=== PATIENT | male | born 1960 | race Caucasian/White ===

== ENCOUNTER 2023-07-19 10:44 | Emergency (ER) | payer OTHER, SELFPAY ==
[2023-07-19] VITALS (11 sets, daily range): BP systolic 113–178; BP diastolic 72–99; PULSE 59–83; RESP 18; TEMP 37.1; O2SAT 96–100; BMI 25.7
--- NOTE | 2023-07-19 11:08 | ECG_ITS ---
[facility] Test Date: 2023-07-19 Pat Name: Damion Segura Department: Room: Gender: Male Java [id number] Lead: : 1960 Requested By: William Mortensen Order Number: [id number] Ruben MD: Alejandro Watson M.D. Measurements Intervals [place] Rate: 62 P: 61 IN: 119 QRS: 17 QRSD: 87 T: 53 QT: 395 QTc: 402 Interpretive Statements SINUS RHYTHM WITH SHORT IN INTERVAL No previous ECG available for comparison Electronically Signed On 07-19-2023 14:10:16 CDT by Alejandro Watson M.D. [id number]
--- NOTE | 2023-07-19 11:09 | PC.PHAR ---
pt states takes no rx medications states only been taking the prn otc meds entered
--- NOTE | 2023-07-19 11:11 | W.ED.ABDPA2 ---
HPI - Abdominal Pain General: Chief Complaint: Abdominal Pain Stated Complaint: abd pain Time Seen by Provider: 07/19/23 10:49 Source: patient Mode of arrival: ambulatory History of Present Illness: 62-year-old male presents emergency room complaining of abdominal discomfort and what he describes as fullness. He states the last several months he has had difficulty with bowel movements. In the last 9 days he states he has been bed ridden he cannot eat or drink much because of abdominal discomfort. He has been using laxatives regularly last several months for stimulation of bowel movements. He feels like he has hemorrhoids at times has a prolapsed. He has tried some [id number] hemorrhoid cream with no relief he has not had any rectal bleeding. He did have a colonoscopy about 2 years ago that he reports he was told was normal. MD elicited complaint: abdominal pain Onset (ago): day(s) (9) Pain Consistency: intermittent Location: None Severity: mild Quality: cramping Radiation: none Exacerbating factors: nothing Relieving factors: nothing Associated Symptoms: Reports change in bowel habits; Denies anorexia, belching, bloating, change in stool character, chills, coffee ground emesis, constipation, GI cramping, diarrhea, dyspepsia, dysuria, fever(s), heartburn, hematochezia, hematuria, hematemesis, fecal incontinence, loose stools, melena, nausea, poor appetite, syncope and vomiting Review of Systems Const: Reports: fatigue and malaise; Denies: fever(s) or chills ENMT: Denies: throat pain, ear or mastoid pain, nasal discharge or nasal congestion Card: Denies: syncope Resp: Denies: dyspnea, productive cough or non-productive cough GI: Reports: abdominal pain, change in bowel habits, pain on defecation and rectal pain; Denies: nausea, vomiting, hematemesis, coffee ground emesis, heartburn, diarrhea, constipation, bloating, GI cramping, belching, fecal incontinence, change in stool character, hematochezia or melena : Denies: dysuria, urinary frequency, urinary urgency or hematuria Skin/Breast: Denies: rash or pruritus Physical Exam Const: GENERAL APPEARANCE: cooperative and comfortable ORIENTATION/CONSCIOUSNESS: Yes awake, Yes oriented to person, Yes oriented to place and Yes oriented to time HENMT: COMMON NORMALS: normocephalic, atraumatic and hearing grossly normal bilaterally HEAD & SCALP: normocephalic and atraumatic Resp: COMMON NORMALS: normal respiratory effort, No retractions, No use of accessory muscles and clear to auscultation bilaterally AUSCULTATION: clear to auscultation bilaterally Cardio: COMMON NORMALS: regular rate, regular rhythm and No murmurs present (Cardio) RATE: regular rate RHYTHM: regular rhythm GI: COMMON NORMALS: Soft to palpation and No hepatosplenomegaly present AUSCULTATION: Yes normoactive bowel sounds PALPATION: Yes Soft to palpation, No Tenderness to palpation present (GI), No Guarding due to palpation present (GI) and Yes No hepatosplenomegaly present OTHER: Nonthrombosed hemorrhoid at the 6 o'clock position. No rectal bleeding no fissures. : COMMON NORMALS: Yes no CVA tenderness BLADDER/KIDNEY EXAM: Yes no CVA tenderness Back/Pelvis: COMMON NORMALS: no CVA tenderness Extremity: COMMON NORMALS: normal to inspection, capillary refill normal, no clubbing, cyanosis or edema, no calf tenderness and no pedal edema Neuro: SENSORIUM/ORIENTATION: Yes oriented to person, Yes oriented to place and Yes oriented to time Skin: COMMON NORMALS: no rashes or lesions noted GENERAL SKIN EXAM: no rashes or lesions noted Course Vital Signs: Vital signs: Vital Signs Temperature 98.8 F 07/19/23 13:00 Pulse Rate 83 07/19/23 15:17 Respiratory Rate 18 07/19/23 13:22 Blood Pressure 126/74 07/19/23 15:17 Pulse Oximetry 96 07/19/23 15:17 Oxygen Delivery Me thod Room Air 07/19/23 15:00 MDM - Abdominal Pain Medical Decision Making Labs and imaging reviewed. Suspect subacute diverticulitis. Started on Cipro and Flagyl. Follow-up with primary care within the week at some point in the future will need to be reevaluated with consideration for repeat endoscopy. If symptoms worsen or change recheck Medical Records I reviewed the patient's medical records. Lab Data I reviewed the patient's lab results. 07/19/23 11:20 07/19/23 11:20 Labs/Radiology: Laboratory Results WBC 9.10 10^3/uL (3.29-11.43) 07/19/23 11:20 RBC 5.01 10^6/uL (3.85-5.65) 07/19/23 11:20 Hgb 16.10 g/dL (11.27-16.99) 07/19/23 11:20 Hct 49.4 % (37-53) 07/19/23 11:20 MCV 98.6 fl (82-101) 07/19/23 11:20 MCH 32.1 pg (27-33) 07/19/23 11:20 MCHC 32.6 g/dL (30-55) 07/19/23 11:20 RDW 12.3 % (12.1-15.1) 07/19/23 11:20 Plt Count 134 10^3/cmm (157-399) L 07/19/23 11:20 MPV 11.0 fL (7.4-10.4) H 07/19/23 11:20 Neut % (Auto) 69.5 % 07/19/23 11:20 Lymph % (Auto) 20.0 % 07/19/23 11:20 [place] % (Auto) 7.8 % 07/19/23 11:20 Eos % (Auto) 1.6 % 07/19/23 11:20 Baso % (Auto) 0.7 % 07/19/23 11:20 Neut # (Auto) 6.32 10^3/uL (1.8-7.7) 07/19/23 11:20 Lymph # (Auto) 1.8 10^3/uL (0.8-4.8) 07/19/23 11:20 [place] # (Auto) 0.7 10^3/uL (0.2-0.9) 07/19/23 11:20 Eos # (Auto) 0.2 10^3/uL (0.0-0.8) 07/19/23 11:20 Baso # (Auto) 0.1 10^3/uL (0.0-0.1) 07/19/23 11:20 Nucleated RBC % (auto) 0 % 07/19/23 11:20 Nucleated RBCs # 0.0 /100WBC 07/19/23 11:20 Sodium 140 mmol/L (136-145) 07/19/23 11:20 Potassium 4.0 mmol/L (3.5-5.1) 07/19/23 11:20 Chloride 101 mmol/L (98-107) 07/19/23 11:20 Carbon Dioxide 28 mmol/L (22-29) 07/19/23 11:20 Anion Gap 15.0 (5-19) 07/19/23 11:20 BUN 13 mg/dL (8-23) 07/19/23 11:20 Creatinine 0.9 mg/dL (0.7-1.2) 07/19/23 11:20 GFR Calculation 86.1 mL/min (90-130) L 07/19/23 11:20 Glucose 97 mg/dL (65-115) 07/19/23 11:20 Calculated Osmolality 290 mOsm/kg (285-295) 07/19/23 11:20 Calcium 9.0 mg/dL (8.5-10.5) 07/19/23 11:20 Total Bilirubin 0.8 mg/dL (0.15-1.2) 07/19/23 11:20 AST 12 U/L (0-40) 07/19/23 11:20 ALT 17 U/L (0-41) 07/19/23 11:20 Alkaline Phosphatase 89 U/L (40-130) 07/19/23 11:20 Total Protein 7.0 g/dL (6.6-8.7) 07/19/23 11:20 Albumin 4.8 g/dL (3.5-5.2) 07/19/23 11:20 Globulin 2.2 g/dL (1.3-4.6) 07/19/23 11:20 Lipase 32 U/L (13-60) 07/19/23 11:20 Urine Color Yellow (Yellow) 07/19/23 11:57 Urine Appearance Clear (CLEAR) 07/19/23 11:57 Urine pH 6 (5-7) 07/19/23 11:57 Ur Specific [place] 1.015 (1.005-1.030) 07/19/23 11:57 Urine Protein Neg (Negative) 07/19/23 11:57 Urine Glucose (UA) Norm (Normal) 07/19/23 11:57 Urine Ketones 1+ (Negative) H 07/19/23 11:57 Urine Blood Trace (Negative) H 07/19/23 11:57 Urine Nitrate Negative (Negative) 07/19/23 11:57 Urine Bilirubin 1+ (Negative) H 07/19/23 11:57 Urine Urobilinogen Norm mg/dL (Negative) 07/19/23 11:57 Ur Leukocyte Esterase Negative (Negative) 07/19/23 11:57 Urine RBC 0-4 /hpf (0-2) H 07/19/23 11:57 Urine WBC 0-4 /hpf (0-5) H 07/19/23 11:57 Ur Squamous Epith Cells 0-4 /hpf (0-5) H 07/19/23 11:57 Amorphous Sediment Not Reportable 07/19/23 11:57 Urine Bacteria None /hpf (NONE) 07/19/23 11:57 Urine Mucus 2+ /hpf 07/19/23 11:57 All radiology interpretation(s) finalized by discharge Discharge Plan Discharge Patient Disposition: Home Clinical Impression: Diverticulitis Condition: Stable Prescriptions: New Cipro 500 mg tablet 500 mg PO BID Qty: 20 0RF metronidazole 500 mg tablet 500 mg PO BID 10 Days Qty: 20 0RF promethazine 25 mg tablet 25 mg PO Q6H PRN (Reason: nausea and vomiting) Qty: 20 0RF hydrocodone-acetaminophen 5-325 mg tablet 1 tab PO Q6H PRN (Reason: pain) Qty: 15 0RF No Action Tylenol Ex Str Rapid Release 500 mg Tablet 1,000 mg PO Q6H PRN (Reason: Pain) Pepto-Bismol 262 mg/15 mL Suspension 524 mg PO QID PRN (Reason: Indigestion) Tums 200 mg calcium (500 mg) Tablet,Chewable 200 mg PO QID PRN (Reason: Indigestion) Dulcolax (bisacodyl) 5 mg Tablet,Delayed Release (Dr/Ec) 5 mg PO DAILY PRN (Reason: Constipation) Ex-Lax Maximum Strength 25 mg Tablet 25 mg PO BID PRN (Reason: Constipation) Discharge Orders: Discharge ED (Routine); Ordered 07/19/23 Ordered By: William Lundy Patient Instructions: Diverticulitis (ED), Opioid Safety, Pain Management Coding Level of Care Code ED New Home Sales Consultant for Kuldip Bar
[2023-07-19 11:31] LABS: Basophils # 0.1 10^3/uL (0.0-0.1); Basophils % 0.7 %; Eosinophils # 0.2 10^3/uL (0.0-0.8); Eosinophils % 1.6 %; Hematocrit 49.4 % (37-53); Lymphocytes # 1.8 10^3/uL (0.8-4.8); Mean Corpuscular HGB Conc 32.6 g/dL (30-55); Mean Corpuscular Hemoglobin 32.1 pg (27-33); Mean Corpuscular Volume 98.6 fl (82-101); Monocytes # 0.7 10^3/uL (0.2-0.9); Monocytes % 7.8 %; Neutrophils # 6.32 10^3/uL (1.8-7.7); Neutrophils % 69.5 %; Nucleated Red Blood Cells % 0 %; Platelet Count 134 10^3/cmm (157-399); Red Blood Count 5.01 10^6/uL (3.85-5.65); Red Cell Distribution Width 12.3 % (12.1-15.1)
[2023-07-19 11:44] LABS: Alanine Aminotransferase 17 U/L (0-41); Albumin Level 4.8 g/dL (3.5-5.2); Alkaline Phosphatase 89 U/L (40-130); Aspartate Amino Transferase 12 U/L (0-40); Blood Urea Nitrogen 13 mg/dL (8-23); Carbon Dioxide 28 mmol/L (22-29); Chloride 101 mmol/L (98-107); Globulin 2.2 g/dL (1.3-4.6); Glomerular Filtration Rate 86.1 mL/min (90-130); Glucose 97 mg/dL (65-115); Lipase 32 U/L (13-60); Osmolality Calculated 290 mOsm/kg (285-295); Sodium 140 mmol/L (136-145); Total Bilirubin 0.8 mg/dL (0.15-1.2)
--- NOTE | 2023-07-19 11:52 | CT_ITS ---
WS: [id number] CT ABDOMEN AND PELVIS NONCONTRAST HISTORY: Abdominal pain TECHNIQUE: Imaging performed through the abdomen and pelvis. Coronal and sagittal reformats are submi tted. All CT scans at [facility] use at least one of these dose optimization techniques: auto mated exposure control; mA and/or kV adjustment per patient size (includes targeted exams where dose is matched to clinical indication); or iterative reconstruction. DLP: 645.30 mGy.cm COMPARISON: None available. Lower thorax: Significant breathing motion artifact at the lung bases. Heart is normal size. Liver: Normal size liver. No mass or bile duct dilatation. Gallbladder: Prior cholecystectomy. Pancreas: Normal size and attenuation. Normal pancreatic duct. No pancreatitis or mass. Spleen: Normal. Adrenal glands: Normal. No mass. Right kidney: Mild perinephric stranding. No obstruction. Left kidney: Mild perinephric stranding. No obstruction. Aorta: Mild atherosclerosis abdominal aorta with no aneurysm. No free fluid, intraperitoneal air or significant lymphadenopathy. GI tract: Normally distended stomach. Numerous diverticula in the distal colon. No evidence for acute diverticulitis. The appendix is identified extending into the RIGHT inguinal hernia. Abdominal wall: Very small umbilical hernia containing fat only. Pelvis: No free fluid. Normal urinary bladder. Inguinal canals are patent and contain fat. Extending into the RIGHT inguinal hernia is a small portion of the cecum and the appendix. Osseous structures: Unremarkable. IMPRESSION: 1. Extensive chronic diverticular disease involving the distal colon. No evidence for an obstruction or acute diverticulitis. 2. RIGHT inguinal hernia. The inguinal hernia contains the appendix and a small amount of the cecum at the orifice. No appendicitis at this time. Recommend surgical evaluation. 3. Prior cholecystectomy. 4. No renal obstruction.
[2023-07-19 12:30] LABS: Add Urine Microscopic? YES; Bilirubin Urine 1+ (Negative); Blood Urine Trace (Negative); Glucose Urine UA Norm (Normal); Ketones Urine 1+ (Negative); Leukocyte Esterase Urine Negative (Negative); Nitrate Urine Negative (Negative); Protein Urine Neg (Negative); Specific Gravity, Urine 1.015 (1.005-1.030); Urine Appearance Clear (CLEAR); Urine Color Yellow (Yellow); Urobilinogen Urine Norm (Negative); pH Urine 6 (5-7)
[2023-07-19 12:38] LABS: Add Urine Culture? No; Mucus Urine 2+ /hpf; RBC Urine 0-4 /hpf (0-2); Squamous Epithelial Cell Urine 0-4 /hpf (0-5); WBC Urine 0-4 /hpf (0-5)
[2023-07-19] MEDS: promethazine 25 mg/mL SDV 1 mL IM (13:01)
[2023-07-19] MEDS: sodium chloride 0.9% 1,000 ML 999 ML IV (13:01)
[2023-07-19] MEDS: morphine 4 mg/mL SDV 1 mL IVP (13:02)
[2023-07-19] MEDS: morphine 4 mg/mL SDV 1 mL 2 MG IVP (13:22)
[2023-07-19] MEDS: ciprofloxacin 400 MG/200 ML PREMIX 200 MG IV (13:23)
[2023-07-19] MEDS: metroNIDAZOLE IV 500 MG/100 ML PREMIX 100 MG IV (13:26)
== END 2023-07-19 15:20 | disposition home or self-care (01) ==
PROVIDERS: Emergency Provider Family Medicine
DX: K57.92 Diverticulitis of intestine, part unspecified, without perforation or abscess without bleeding (principal)
CPT/HCPCS: 36415; 74176; 80053; 81001; 83690; 85025; 93005; 96365; 96366; 96367; 96372; 96375; 96376; 99285; J0744; J2270; J2550; J3490; J7030

== ENCOUNTER → 2023-08-27 10:54 | Outpatient (BNVA) | payer OTHER, SELFPAY | PROVIDERS: Referring Provider Family Medicine; Visit Provider Surgery | DX: K64.9 Unspecified hemorrhoids (principal) | CPT/HCPCS: 99203 ==

== ENCOUNTER 2023-12-26 08:32 | Emergency (ER) | payer OTHER, SELFPAY ==
[2023-12-26] VITALS (43 sets, daily range): BP systolic 138–173; BP diastolic 87–113; PULSE 65–98; RESP 20; TEMP 36.7; O2SAT 82–100
--- NOTE | 2023-12-26 08:36 | XR_ITS ---
WS: [id number] Portable AP upright chest, 12/26/2023 Clinical Data: dyspnea/cough Comparison: None Findings: No nodules, masses or effusions are seen. The heart is normal. The pulmonary vascularity is not increased. No pneumonia or pneumothorax is seen. Impression: Negative chest.
--- NOTE | 2023-12-26 08:38 | ECG_ITS ---
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 Measurements Intervals [place] Rate: 78 P: 51 MN: 108 QRS: 32 QRSD: 85 T: 46 QT: 358 QTc: 409 Interpretive Statements SINUS RHYTHM WITH SHORT [place] INTERVAL WITH OCCASIONAL SUPRAVENTRICULAR PREMATURE COMPLEXES POSSIBLE RIGHT VENTRICULAR CONDUCTION DELAY [RSR (QR) IN V1/V2] MODERATE ST DEPRESSION [0.05+ mV ST DEPRESSION] Compared to ECG 07/19/2023 11:24:20 ST (T wave) deviation now present Electronically Signed On 12-26-2023 10:54:47 ANALOG DESIGN ENGINEER by Irvin Jimenez M.D. [id number] f
--- NOTE | 2023-12-26 08:43 | ED_ITS ---
HPI - Abdominal Pain 2 General: Chief Complaint: Abdominal Pain Stated Complaint: abd pain, n/v, sob Time Seen by Provider: 12/26/23 08:35 Source: patient Mode of arrival: ambulatory History of Present Illness: 63-year-old male presents to the emergen cy room complaining of abdominal pain that began suddenly 2 days ago. He reports generalized abdominal pain no lower abdomen. He has had problems with hemorrhoids in the past he was seen a few months ago at that time he had a right inguinal hernia complaint contained some bowel but he still having bowel movements regularly. He had a follow-up with surgery who evaluated his hemorrhoids. He has not had any other problems until today. He had a colonoscopy few years ago that was otherwise unremarkable. He denies any hematuria dysuria urgency or frequency his last bowel movement was 2 days ago and is symptoms began. No hematochezia melena hematemesis or coffee- ground emesis. He has previously had a cholecystectomy. MD elicited complaint: abdominal pain Pertinent past history: none Onset (ago): minute(s) Location: None Severity: mild Quality: cramping Exacerbating factors: nothing Relieving factors: nothing Associated Symptoms: Reports nausea and vomiting; Denies anorexia, belching, bloating, change in bowel habits, change in stool character, chills, coffee ground emesis, constipation, GI cramping, diarrhea, dyspepsia, dysuria, excessive flatus, fever(s), heartburn, hematochezia, hematuria, hematemesis, fecal incontinence, loose stools, melena, poor appetite and syncope Review of Systems 2 Const: Denies: fever(s) or chills Card: Denies: syncope Resp: Reports: dyspnea; Denies: productive cough, non-productive cough or wheezing GI: Reports: abdominal pain, nausea and vomiting; Denies: hematemesis, coffee ground emesis, heartburn, diarrhea, constipation, bloating, GI cramping, belching, excessive flatus, fecal incontinence, change in bowel habits, change in stool character, hematochezia or melena : Denies: dysuria or hematuria Musc: Denies: neck pain or back pain Skin/Breast: Denies: rash PFSH ED 2 PFSH: Family History Mother Breast cancer Father Cancer Bone cancer Social History Smoking and tobacco/nicotine status: current every day tobacco/nicotine user Alcohol intake: never Physical Exam 2 Const: COMMON NORMALS: no acute distress GENERAL APPEARANCE: cooperative and comfortable ORIENTATION/CONSCIOUSNESS: Yes awake, Yes oriented to person, Yes oriented to place and Yes oriented to time HENMT: COMMON NORMALS: normocephalic, atraumatic and hearing grossly normal bilaterally HEAD & SCALP: normocephalic and atraumatic Resp: COMMON NORMALS: normal respiratory effort, No retractions, No use of accessory muscles and clear to auscultation bilaterally AUSCULTATION: clear to auscultation bilaterally Cardio: COMMON NORMALS: regular rate, regular rhythm and No murmurs present (Cardio) RATE: regular rate RHYTHM: regular rhythm GI: COMMON NORMALS: Soft to palpation and No hepatosplenomegaly present A USCULTATION: Yes normoactive bowel sounds PALPATION: Yes Soft to palpation, No Tenderness to palpation present (GI), No Guarding due to palpation present (GI) and Yes No hepatosplenomegaly present Extremity: COMMON NORMALS: normal to inspection, capillary refill normal, no clubbing, cyanosis or edema, no calf tenderness and no pedal edema Neuro: SENSORIUM/ORIENTATION: Yes oriented to person, Yes oriented to place and Yes oriented to time Skin: COMMON NORMALS: no rashes or lesions noted GENERAL SKIN EXAM: no rashes or lesions noted Course 2 Vital Signs: Vital signs: Vital Signs Temperature 98.1 F 12/26/23 08:34 Pulse Rate 65 12/26/23 11:46 Respiratory Rate 20 H 12/26/23 08:34 Blood Pressure 167/94 12/26/23 11:45 Pulse Oximetry 97 12/26/23 11:46 Oxygen Delivery Me thod Nasal Cannula 12/26/23 11:10 Oxygen Flow Rate 2 12/26/23 11:10 MDM - Abdominal Pain Medical Decision Making Patient has similar presentation as he did last fall. He had a portion of the appendix and a right inguinal hernia was asymptomatic of that last time and is actually very asymptomatic of it today even with palpation across the inguinal canal I cannot really elicit any discomfort. Does not even anything reducible at this point. Discussed with Dr. Pollack he recommends treating empirically for diverticulitis and have him follow-up with Dr. Barros in the office. He has seen Dr. Barros in the past. Clear liquid diet for next 24 to 48 hours then advance as tolerated. Return if has further problems. Medical Records I reviewed the patient's medical records. Lab Data I reviewed the patient's lab results. 12/26/23 09:10 12/26/23 09:10 Labs/Radiology: Laboratory Results WBC 9.77 10^3/uL (3.29-11.43) 12/26/23 09:10 RBC 5.53 10^6/uL (3.85-5.65) 12/26/23 09:10 Hgb 17.60 g/dL (11.27-16.99) H 12/26/23 09:10 Hct 51.8 % (37-53) 12/26/23 09:10 MCV 93.7 fl (82-101) 12/26/23 09:10 MCH 31.8 pg (27-33) 12/26/23 09:10 MCHC 34.0 g/dL (30-55) 12/26/23 09:10 RDW 12.2 % (12.1-15.1) 12/26/23 09:10 Plt Count 166 10^3/cmm (157-399) 12/26/23 09:10 MPV 10.4 fL (7.4-10.4) 12/26/23 09:10 Neut % (Auto) 84.2 % 12/26/23 09:10 Lymph % (Auto) 9.7 % 12/26/23 09:10 [place] % (Auto) 5.2 % 12/26/23 09:10 Eos % (Auto) 0.1 % 12/26/23 09:10 Baso % (Auto) 0.4 % 12/26/23 09:10 Neut # (Auto) 8.22 10^3/uL (1.8-7.7) H 12/26/23 09:10 Lymph # (Auto) 1.0 10^3/uL (0.8-4.8) 12/26/23 09:10 [place] # (Auto) 0.5 10^3/uL (0.2-0.9) 12/26/23 09:10 Eos # (Auto) 0.0 10^3/uL (0.0-0.8) 12/26/23 09:10 Baso # (Auto) 0.0 10^3/uL (0.0-0.1) 12/26/23 09:10 Nucleated RBC % (auto) 0 % 12/26/23 09:10 Nucleated RBCs # 0.0 /100WBC 12/26/23 09:10 Sodium 141 mmol/L (136-145) 12/26/23 09:10 Potassium 4.1 mmol/L (3.5-5.1) 12/26/23 09:10 Chloride 101 mmol/L (98-107) 12/26/23 09:10 Carbon Dioxide 27 mmol/L (22-29) 12/26/23 09:10 Anion Gap 17.1 (5-19) 12/26/23 09:10 BUN 16 mg/dL (8-23) 12/26/23 09:10 Creatinine 0.9 mg/dL (0.7-1.2) 12/26/23 09:10 GFR Calculation 85.8 mL/min (90-130) L 12/26/23 09:10 Glucose 117 mg/dL (65-115) H 12/26/23 09:10 Calculated Osmolality 294 mOsm/kg (285-295) 12/26/23 09:10 Calcium 9.0 mg/dL (8.5-10.5) 12/26/23 09:10 Total Bilirubin 1.1 mg/dL (0.15-1.2) 12/26/23 09:10 AST 16 U/L (0-40) 12/26/23 09:10 ALT 17 U/L (0-41) 12/26/23 09:10 Alkaline Phosphatase 86 U/L (40-130) 12/26/23 09:10 Troponin T Baseline < 6 ng/L (0-15) 12/26/23 09:10 Troponin T 120 Minute 8.39 ng/L (0-15) 12/26/23 11:10 Delta Troponin T 2.76016 ABS# (0-10) 12/26/23 11:10 Total Protein 7.4 g/dL (6.6-8.7) 12/26/23 09:10 Albumin 4.4 g/dL (3.5-5.2) 12/26/23 09:10 Globulin 3.0 g/dL (1.3-4.6) 12/26/23 09:10 Lipase 39 U/L (13-60) 12/26/23 09:10 Urine Color Yellow (Yellow) 12/26/23 10:56 Urine Appearance Hazy (CLEAR) A 12/26/23 10:56 Urine pH 8 (5-7) H 12/26/23 10:56 Ur Specific [place] 1.010 (1.005-1.030) 12/26/23 10:56 Urine Protein Neg (Negative) 12/26/23 10:56 Urine Glucose (UA) Norm (Normal) 12/26/23 10:56 Urine Ketones 1+ (Negative) H 12/26/23 10:56 Urine Blood Neg (Negative) 12/26/23 10:56 Urine Nitrate Negative (Negative) 12/26/23 10:56 Urine Bilirubin Neg (Negative) 12/26/23 10:56 Prot Sulfosalicylic Acd Negative (Negative) 12/26/23 10:56 Urine Urobilinogen Norm mg/dL (Negative) 12/26/23 10:56 Ur Leukocyte Esterase Negative (Negative) 12/26/23 10:56 Urine RBC None /hpf (0-2) 12/26/23 10:56 Urine WBC 0-4 /hpf (0-5) H 12/26/23 10:56 Ur Squamous Epith Cells 0-4 /hpf (0-5) H 12/26/23 10:56 Ur Renal Epithelial Cell Rare /hpf 12/26/23 10:56 Amorphous Sediment 2+ /hpf 12/26/23 10:56 Urine Bacteria Trace /hpf (NONE) 12/26/23 10:56 Urine Mucus 3+ /hpf 12/26/23 10:56 All radiology interpretation(s) finalized by discharge Discharge Plan Discharge Patient Disposition: Home Clinical Impression: Diverticulitis, Hernia, inguinal, right Condition: Stable Prescriptions: New Augmentin 500-125 mg tablet 1 tab PO BID Qty: 20 0RF hydrocodone-acetaminophen 5-325 mg tablet 1 tab PO Q6H PRN (Reason: pain) Qty: 15 0RF ondansetron HCl 4 mg tablet 4 mg PO Q6H PRN (Reason: nausea and vomiting) Qty: 20 0RF No Action Stool Softener 100 mg Capsule 200 mg PO QPM Discharge Orders: Discharge ED (Routine); Ordered 12/26/23 Ordered By: William Lundy Referrals: Nikolas Pham MD [Referring] - Discharge Diet: Usual diet Discharge Activity: Increase activity as tolerated Patient Instructions: Opioid Safety, Pain Management Activity Restrictions/Additional Instructions: Thank you for choosing [facility] for your healthcare needs today. Please realize this is an emergency room and that we are providing you with a medical screening exam and this may not be complete and all inclusive of all the testing and or work up that you may need to determine your ailment or severity of your illness. It is very important that you follow up as instructed or that you return to the Emergency Department should you have concerns or if your condition changes or worsens in any way. You are seen today for abdominal pain. Your CT did not show any acute abnormalities very mild constipation on the right side of the colon. There is a inguinal hernia with a portion of the cecum and the appendix in the inguinal canal however on the physical exam you were asymptomatic of this. There is no sign of bowel obstruction. You do have extensive diverticuli. Suspect this may be the cause of your symptoms. Recommend a course of oral antibiotics for this. We will make a referral back to the general surgeon to review the inguinal hernia findings on the CT. These were present at your last visit and were generally asymptomatic at that time as well. Coding Level of Care Code ED Outdoor Power Equipment Mechanic for Kuldip Bar
--- NOTE | 2023-12-26 08:47 | PC.PHAR ---
Addendum entered by Karly Man 12/26/23 09:15: [facility]-only thing they had listed for the pt was nicotine 4mg gum 4mg q4h prn Original Note: pt states he takes no prescription medications-pt states only takes the stool softener 2 cap qpm-faxed [facility] to verify they dont send any meds
[2023-12-26 09:17] LABS: Basophils % 0.4 %; Eosinophils % 0.1 %; Hematocrit 51.8 % (37-53); Lymphocytes % 9.7 %; Mean Corpuscular Hemoglobin 31.8 pg (27-33); Mean Corpuscular Volume 93.7 fl (82-101); Mean Platelet Volume 10.4 fL (7.4-10.4); Monocytes # 0.5 10^3/uL (0.2-0.9); Monocytes % 5.2 %; Neutrophils # 8.22 10^3/uL (1.8-7.7); Neutrophils % 84.2 %; Nucleated Red Blood Cells % 0 %; Platelet Count 166 10^3/cmm (157-399); Red Blood Count 5.53 10^6/uL (3.85-5.65); Red Cell Distribution Width 12.2 % (12.1-15.1); White Blood Count 9.77 10^3/uL (3.29-11.43)
[2023-12-26] MEDS: sodium chloride 0.9% 1,000 ML 999 ML IV (09:18)
[2023-12-26] MEDS: ondansetron 2 mg/ML SDV 2 mL 4 MG IVP (09:19)
[2023-12-26] MEDS: morphine 4 mg/mL SDV 1 mL IVP (09:22)
[2023-12-26 09:35] LABS: Troponin(5th) Baseline < 6 ng/L (0-15)
[2023-12-26 09:36] LABS: Alanine Aminotransferase 17 U/L (0-41); Albumin Level 4.4 g/dL (3.5-5.2); Alkaline Phosphatase 86 U/L (40-130); Blood Urea Nitrogen 16 mg/dL (8-23); Carbon Dioxide 27 mmol/L (22-29); Chloride 101 mmol/L (98-107); Glomerular Filtration Rate 85.8 mL/min (90-130); Glucose 117 mg/dL (65-115); Lipase 39 U/L (13-60); Osmolality Calculated 294 mOsm/kg (285-295); Sodium 141 mmol/L (136-145); Total Bilirubin 1.1 mg/dL (0.15-1.2); Total Protein 7.4 g/dL (6.6-8.7)
[2023-12-26 09:37] LABS: Anion Gap 17.1 (5-19); Potassium 4.1 mmol/L (3.5-5.1)
[2023-12-26 09:38] LABS: Aspartate Amino Transferase 16 U/L (0-40)
--- NOTE | 2023-12-26 09:42 | CT_ITS ---
WS: [id number] CT ABDOMEN PELVIS TECHNIQUE: Noncontrast CT of the abdomen and pelvis with coronal and sagittal reformatted images. CLINICAL INFORMATION: Abdominal pain COMPARISON: 07/19/2023 DLP: 769.[address] scans at [facility] use at least one of these dose optimization techniques: automated e xposure control; mA and/or kV adjustment per patient size (includes targeted exams where dose is matc hed to clinical indication); or iterative reconstruction. FINDINGS: RIGHT inguinal hernia containing the appendix extending into the inguinal canal and scrotum distally. No evidence of acute appendicitis. Recommend surgical evaluation. Cecum at the superior margin of th e hernia. A few air-fluid levels in the cecum and RIGHT colon. No evidence of high-grade obstruction. Extensive sigmoid diverticulosis. No evidence of acute diverticulitis. Fat-containing LEFT inguinal hernia. Lung bases are well aerated. Noncontrast liver is normal. Prior cholecystectomy. Normal GE junction. Air-fluid level in the stomach. Normal noncontrast spleen. Fatty atrophy of the pancreas. Adrenal gla nds are normal. No hydronephrosis in either kidney. Normal caliber abdominal aorta. Mild aortic calcification. Urine distended bladder. Prostate measures 3.8 cm. Mild spondylitic changes lumbar spine. Disc osteophyte complex worse L4-5 with mild central canal urbano nosis. Advanced facet arthropathy lower lumbar spine. IMPRESSION: 1. RIGHT inguinal hernia containing nonobstructed appendix extending into the scrotum. Recommend jennifer gical consultation. This is similar to previous. Tip of the cecum at the superior margin of the RIGHT inguinal hernia without evidence of significant obstruction. 2. Extensive sigmoid diverticulosis. No evidence of acute diverticulitis. 3. Prior cholecystectomy. 4. No hydronephrosis in either kidney.
--- NOTE | 2023-12-26 10:54 | ECG_ITS ---
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 Measurements Intervals [place] Rate: 59 P: 44 WV: 120 QRS: 10 QRSD: 89 T: 30 QT: 421 QTc: 420 Interpretive Statements SINUS BRADYCARDIA POSSIBLE RIGHT VENTRICULAR CONDUCTION DELAY [RSR (QR) IN V1/V2] Compared to ECG 12/26/2023 08:38:47 Sinus rhythm no longer present Short WV interval no longer present ST (T wave) deviation no longer present Electronically Signed On 12-26-2023 11:01:08 FRONT DESK COORDINATOR by Irvin Jimenez M.D. [id number]
[2023-12-26] MEDS: ketorolac 30 mg/mL INJ IVP (11:08)
[2023-12-26 11:46] LABS: Urine Appearance Hazy (CLEAR); Urine Color Yellow (Yellow); pH Urine 8 (5-7)
[2023-12-26 11:47] LABS: Add Urine Microscopic? YES; Bilirubin Urine Neg (Negative); Blood Urine Neg (Negative); Glucose Urine UA Norm (Normal); Ketones Urine 1+ (Negative); Leukocyte Esterase Urine Negative (Negative); Nitrate Urine Negative (Negative); Protein Urine Neg (Negative); Sulfosalicylic Acid Urine Negative (Negative); Urobilinogen Urine Norm (Negative)
[2023-12-26 11:50] LABS: Add Urine Culture? No; Amorphous Sediment Urine 2+ /hpf; Bacteria Urine TRACE /hpf; Mucus Urine 3+ /hpf; Renal Epithelial Cells Urine RARE /hpf; Squamous Epithelial Cell Urine 0-4 /hpf (0-5); WBC Urine 0-4 /hpf (0-5)
[2023-12-26 11:58] LABS: Troponin 5 2HR 8.39 ng/L (0-15); Troponin 5 2HR Delta 2.39001 ABS# (0-10)
--- NOTE | 2023-12-26 17:51 | DCPLANNER ---
Message sent to Gen Surg- You are seen today for abdominal pain. Your CT did not show any acute abnormalities very mild constipation on the right side of the colon. There is a inguinal hernia with a portion of the cecum and the appendix in the inguinal canal
== END 2023-12-26 11:40 | disposition home or self-care (01) ==
PROVIDERS: Emergency Provider Family Medicine
DX: K57.92 Diverticulitis of intestine, part unspecified, without perforation or abscess without bleeding (principal); K40.90 Unilateral inguinal hernia, without obstruction or gangrene, not specified as recurrent; Z72.0 Tobacco use
CPT/HCPCS: 36415; 71045; 74176; 80053; 81001; 83690; 84484; 85025; 93005; 96361; 96374; 96375; 99285; J1885; J2270; J2405; J7030

== ENCOUNTER → 2024-01-08 09:13 | Outpatient (BNVA) | payer OTHER, SELFPAY | PROVIDERS: Referring Provider Family Medicine; Visit Provider Surgery | DX: R10.9 Unspecified abdominal pain (principal); K57.92 Diverticulitis of intestine, part unspecified, without perforation or abscess without bleeding; K40.90 Unilateral inguinal hernia, without obstruction or gangrene, not specified as recurrent | CPT/HCPCS: 36415; 83630; 83993; 86003; 86008; 99214 ==

== ENCOUNTER 2024-01-31 07:50 | Emergency (ER) | payer OTHER, SELFPAY ==
[2024-01-31 08:01] VITALS: BP 165/96; PULSE 82; TEMP 37.1; O2SAT 100; BMI 27.1
--- NOTE | 2024-01-31 08:07 | CT_ITS ---
WS: [id number] CT ABDOMEN AND PELVIS WITH CONTRAST HISTORY: abd pain, epigastric pain. TECHNIQUE: Imaging performed of the abdomen and pelvis with IV contrast. Single phase imaging of the abdomen. Coronal and sagittal reformats are submitted. All CT scans at [facility] use at dia st one of these dose optimization techniques: automated exposure control; mA and/or kV adjustment per patient size (includes targeted exams where dose is matched to clinical indication); or iterative re construction. IV CONTRAST: Omnipaque 350; 100 mL IV. Oral contrast: None DLP: 695.69 mGy.cm COMPARISON: 12/26/2023 Lower thorax: Lung bases are clear. Heart is normal size. No hiatal hernia. Liver/biliary system: Normal size with no intrahepatic dilatation. Gallbladder: Status post cholecystectomy. Pancreas: Normal size pancreas and pancreatic duct. No adjacent inflammation. Spleen: Normal size spleen. No mass or infarct. Adrenal glands: Normal. Right kidney: Tiny cortical cyst upper pole. Otherwise negative. Left kidney: Normal. Aorta: Mild atherosclerosis with no aneurysm. Lymphadenopathy: None. Free fluid: None. GI tract: No GI tract obstruction. The appendix is reidentified in the RIGHT inguinal hernia as on pr ior studies. Numerous diverticula beginning in the descending through the sigmoid colon. There is jennifer e moderate inflammation in the deep LEFT pelvis consistent with acute diverticulitis. There is no abs cess. Abdominal wall: Unremarkable abdominal wall. No hernia. Pelvis: No mass. Negative urinary bladder. Bilateral patent inguinal canals. Bones: Mild facet joint arthritis lower lumbar spine. Moderate degenerative changes at the hips. Slig htly greater narrowing LEFT hip joint with acetabular and osteophytic ridging. markable. IMPRESSION: 1. Acute, moderate distal sigmoid diverticulitis. No abscess or free fluid. No free air. 2. No appendicitis. Reidentified is the appendix in the RIGHT inguinal hernia which has been previou sly described. 3. No ascites or adenopathy. 4. Prior cholecystectomy.
--- NOTE | 2024-01-31 08:16 | ED_ITS ---
HPI - Abdominal Pain 2 General: Chief Complaint: Abdominal Pain Stated Complaint: abd pain Time Seen by Provider: 01/31/24 08:06 Source: patient Mode of arrival: ambulatory History of Present Illness: 63-year-old male presents to the emergen cy room with complaints of abdominal pain for the last 4 days. His chronic abdominal issues, he was in the ER in June 2023 and again in December 2023. Both times showed a inguinal hernia with cecum and the appendix in the inguinal canal. He had diverticulosis but no diverticulitis. He denies any dysuria urgency or frequency has intermittently had some hematochezia. He is not on any anticoagulants. On January 07 he was given Cipro and Flagyl for diverticulitis which she has completed. Subjective low-grade fever. He has had a colonoscopy in the past with a polypectomy. None of the previous CT showed diverticulitis. On arrival here patient states he is concerned he has episode of diverticulitis again. MD elicited complaint: abdominal pain Pertinent past history: none Pain Consistency: constant Location: LLQ Associated Symptoms: Denies chills, dysuria and fever(s) Review of Systems 2 Const: Denies: fever(s) or chills Card: Denies: chest pain Resp: Denies: dyspnea GI: Denies: abdominal pain : Denies: dysuria, urinary frequency or urinary urgency Musc: Denies: neck pain or back pain Skin/Breast: Denies: rash PFSH ED 2 PFSH: Surgical History (Updated 01/31/24 @ 08:24 by William Lundy DO) Hx laparoscopic cholecystectomy Hx of colonoscopy with polypectomy x2 Family History Mother Breast cancer Father Cancer Bone cancer Social History Smoking and tobacco/nicotine status: current every day tobacco/nicotine user Alcohol intake: never Physical Exam 2 Const: COMMON NORMALS: no acute distress GENERAL APPEARANCE: cooperative and comfortable ORIENTATION/CONSCIOUSNESS: Yes awake, Yes oriented to person, Yes oriented to place and Yes oriented to time HENMT: COMMON NORMALS: normocephalic, atraumatic and hearing grossly normal bilaterally HEAD & SCALP: normocephalic and atraumatic Resp: COMMON NORMALS: normal respiratory effort, No retractions, No use of accessory muscles and clear to auscultation bilaterally AUSCULTATION: clear to auscultation bilaterally Cardio: COMMON NORMALS: regular rate, regular rhythm and No murmurs present (Cardio) RATE: regular rate RHYTHM: regular rhythm GI: COMMON NORMALS: Soft to palpation and No hepatosplenomegaly present A USCULTATION: Yes normoactive bowel sounds PALPATION: Yes Soft to palpation, No Tenderness to palpation present (GI), No Guarding due to palpation present (GI) and Yes No hepatosplenomegaly present Extremity: COMMON NORMALS: normal to inspection, capillary refill normal, no clubbing, cyanosis or edema, no calf tenderness and no pedal edema Neuro: SENSORIUM/ORIENTATION: Yes oriented to person, Yes oriented to place and Yes oriented to time Skin: COMMON NORMALS: no rashes or lesions noted GENERAL SKIN EXAM: no rashes or lesions noted Course 2 Vital Signs: Vital signs: Vital Signs Temperature 98.8 F 01/31/24 08:01 Pulse Rate 83 01/31/24 08:50 Respiratory Rate 18 01/31/24 09:56 Blood Pressure 161/106 01/31/24 08:50 Pulse Oximetry 97 01/31/24 09:56 Oxygen Delivery Me thod Room Air 01/31/24 08:50 MDM - Abdominal Pain Medical Decision Making CT at this time does show acute diverticulitis compared to previous 1 showed diverticulosis in the window signs of infection. Will place him back on Cipro and Flagyl promethazine as needed hydrocodone for pain. Clear liquid diet for 24 to 48 hours and advance as tolerated. Recommend he follow-up with Dr. Barros for discussion of further treatment options going forward. Return if has further problems or develops fever. Medical Records I reviewed the patient's medical records. Lab Data I reviewed the patient's lab results. 01/31/24 08:20 01/31/24 08:20 Labs/Radiology: Laboratory Results WBC 10.21 10^3/uL (3.29-11.43) 01/31/24 08:20 RBC 5.34 10^6/uL (3.85-5.65) 01/31/24 08:20 Hgb 17.20 g/dL (11.27-16.99) H 01/31/24 08:20 Hct 53.3 % (37-53) H 01/31/24 08:20 MCV 99.8 fl (82-101) 01/31/24 08:20 MCH 32.2 pg (27-33) 01/31/24 08:20 MCHC 32.3 g/dL (30-55) 01/31/24 08:20 RDW 12.3 % (12.1-15.1) 01/31/24 08:20 Plt Count 134 10^3/cmm (157-399) L 01/31/24 08:20 MPV 10.4 fL (7.4-10.4) 01/31/24 08:20 Neut % (Auto) 75.5 % 01/31/24 08:20 Lymph % (Auto) 14.0 % 01/31/24 08:20 [place] % (Auto) 8.8 % 01/31/24 08:20 Eos % (Auto) 1.0 % 01/31/24 08:20 Baso % (Auto) 0.4 % 01/31/24 08:20 Neut # (Auto) 7.71 10^3/uL (1.8-7.7) H 01/31/24 08:20 Lymph # (Auto) 1.4 10^3/uL (0.8-4.8) 01/31/24 08:20 [place] # (Auto) 0.9 10^3/uL (0.2-0.9) 01/31/24 08:20 Eos # (Auto) 0.1 10^3/uL (0.0-0.8) 01/31/24 08:20 Baso # (Auto) 0.0 10^3/uL (0.0-0.1) 01/31/24 08:20 Nucleated RBC % (auto) 0 % 01/31/24 08:20 Nucleated RBCs # 0.0 /100WBC 01/31/24 08:20 Sodium 144 mmol/L (136-145) 01/31/24 08:20 Potassium 4.4 mmol/L (3.5-5.1) 01/31/24 08:20 Chloride 105 mmol/L (98-107) 01/31/24 08:20 Carbon Dioxide 24 mmol/L (22-29) 01/31/24 08:20 Anion Gap 19.4 (5-19) H 01/31/24 08:20 BUN 16 mg/dL (8-23) 01/31/24 08:20 Creatinine 1.0 mg/dL (0.7-1.2) 01/31/24 08:20 GFR Calculation 76.0 mL/min (90-130) L 01/31/24 08:20 Glucose 117 mg/dL (65-115) H 01/31/24 08:20 Calculated Osmolality 300 mOsm/kg (285-295) H 01/31/24 08:20 Lactic Acid 1.4 mmol/L (0.5-2.2) 01/31/24 08:47 Calcium 9.6 mg/dL (8.5-10.5) 01/31/24 08:20 Total Bilirubin 0.9 mg/dL (0.15-1.2) 01/31/24 08:20 AST 12 U/L (0-40) 01/31/24 08:20 ALT 13 U/L (0-41) 01/31/24 08:20 Alkaline Phosphatase 105 U/L (40-130) 01/31/24 08:20 Total Protein 6.8 g/dL (6.6-8.7) 01/31/24 08:20 Albumin 4.3 g/dL (3.5-5.2) 01/31/24 08:20 Globulin 2.5 g/dL (1.3-4.6) 01/31/24 08:20 Urine Color Yellow (Yellow) 01/31/24 10:00 Urine Appearance Hazy (CLEAR) A 01/31/24 10:00 Urine pH 7 (5-7) 01/31/24 10:00 Ur Specific [place] 1.010 (1.005-1.030) 01/31/24 10:00 Urine Protein Neg (Negative) 01/31/24 10:00 Urine Glucose (UA) Norm (Normal) 01/31/24 10:00 Urine Ketones 1+ (Negative) H 01/31/24 10:00 Urine Blood Neg (Negative) 01/31/24 10:00 Urine Nitrate Negative (Negative) 01/31/24 10:00 Urine Bilirubin Neg (Negative) 01/31/24 10:00 Urine Urobilinogen Norm mg/dL (Negative) 01/31/24 10:00 Ur Leukocyte Esterase Negative (Negative) 01/31/24 10:00 Urine RBC 0-4 /hpf (0-2) H 01/31/24 10:00 Urine WBC None /hpf (0-5) 01/31/24 10:00 Ur Squamous Epith Cells 0-4 /hpf (0-5) H 01/31/24 10:00 Amorphous Sediment 2+ /hpf 01/31/24 10:00 Urine Bacteria Trace /hpf (NONE) 01/31/24 10:00 Urine Mucus None /hpf 01/31/24 10:00 All radiology interpretation(s) finalized by discharge Discharge Plan Discharge Patient Disposition: Home Clinical Impression: Diverticulitis Condition: Stable Prescriptions: New hydrocodone-acetaminophen 5-325 mg tablet 1 tab PO Q6H PRN (Reason: pain) Qty: 25 0RF promethazine 25 mg tablet 25 mg PO Q6H PRN (Reason: nausea and vomiting) Qty: 20 0RF Cipro 500 mg tablet 500 mg PO BID Qty: 20 0RF metronidazole 500 mg tablet 500 mg PO BID 10 Days Qty: 20 0RF No Action pantoprazole [Protonix] 40 mg tablet,delayed release (DR/EC) 40 mg PO DAILY 30 Days Qty: 30 0RF hydrocodone-acetaminophen 5-325 mg tablet 1 tab PO Q6H PRN (Reason: pain) Qty: 15 0RF ondansetron HCl 4 mg tablet 4 mg PO Q6H PRN (Reason: nausea and vomiting) Qty: 20 0RF Discharge Orders: Discharge ED (Routine); Ordered 01/31/24 Ordered By: William Lundy Discharge Diet: Clear Liquid Discharge Activity: Increase activity as tolerated Patient Instructions: Opioid Safety, Pain Management Activity Restrictions/Additional Instructions: Thank you for choosing [facility] for your healthcare needs today. Please realize this is an emergency room and that we are providing you with a medical screening exam and this may not be complete and all inclusive of all the testing and or work up that you may need to determine your ailment or severity of your illness. It is very important that you follow up as instructed or that you return to the Emergency Department should you have concerns or if your condition changes or worsens in any way. You are seen today for abdominal pain your white count was normal your CT shows acute diverticulitis. You are given antibiotics pain medications and nausea medications. Follow-up with Dr. Barros or with your primary care doctor within the next 2 weeks return if you have further problems. Coding Level of Care Code ED Business Office Specialist for Kuldip Bar
[2024-01-31 08:33] LABS: Basophils % 0.4 %; Eosinophils # 0.1 10^3/uL (0.0-0.8); Hematocrit 53.3 % (37-53); Lymphocytes # 1.4 10^3/uL (0.8-4.8); Mean Corpuscular HGB Conc 32.3 g/dL (30-55); Mean Corpuscular Hemoglobin 32.2 pg (27-33); Mean Corpuscular Volume 99.8 fl (82-101); Mean Platelet Volume 10.4 fL (7.4-10.4); Monocytes # 0.9 10^3/uL (0.2-0.9); Monocytes % 8.8 %; Neutrophils # 7.71 10^3/uL (1.8-7.7); Neutrophils % 75.5 %; Nucleated Red Blood Cells % 0 %; Platelet Count 134 10^3/cmm (157-399); Red Blood Count 5.34 10^6/uL (3.85-5.65); Red Cell Distribution Width 12.3 % (12.1-15.1); White Blood Count 10.21 10^3/uL (3.29-11.43)
[2024-01-31] MEDS: sodium chloride 0.9% 1,000 ML 999 ML IV (08:47)
[2024-01-31 08:50] VITALS: BP 161/106; PULSE 83; O2SAT 96
[2024-01-31 08:53] LABS: Alanine Aminotransferase 13 U/L (0-41); Albumin Level 4.3 g/dL (3.5-5.2); Alkaline Phosphatase 105 U/L (40-130); Blood Urea Nitrogen 16 mg/dL (8-23); Calcium 9.6 mg/dL (8.5-10.5); Carbon Dioxide 24 mmol/L (22-29); Chloride 105 mmol/L (98-107); Creatinine Clr Calc Pharmacy 90.9018; Globulin 2.5 g/dL (1.3-4.6); Glucose 117 mg/dL (65-115); Osmolality Calculated 300 mOsm/kg (285-295); Sodium 144 mmol/L (136-145); Total Bilirubin 0.9 mg/dL (0.15-1.2); Total Protein 6.8 g/dL (6.6-8.7)
[2024-01-31 08:59] LABS: Anion Gap 19.4 (5-19); Aspartate Amino Transferase 12 U/L (0-40); Potassium 4.4 mmol/L (3.5-5.1)
[2024-01-31] MEDS: iohexol 350 mg/mL 500 mL Btl (per mL) IV (09:17)
[2024-01-31 09:18] LABS: Lactic Sepsis W/Reflex 1.4 mmol/L (0.5-2.2)
[2024-01-31 09:56] VITALS: RESP 18; O2SAT 97
[2024-01-31] MEDS: ondansetron 2 mg/ML SDV 2 mL 4 MG IVP (09:56)
[2024-01-31] MEDS: morphine 4 mg/mL SDV 1 mL IVP (09:56)
[2024-01-31 10:29] LABS: Urine Appearance Hazy (CLEAR); Urine Color Yellow (Yellow)
[2024-01-31 10:30] LABS: Add Urine Microscopic? YES; Bilirubin Urine Neg (Negative); Blood Urine Neg (Negative); Glucose Urine UA Norm (Normal); Ketones Urine 1+ (Negative); Leukocyte Esterase Urine Negative (Negative); Nitrate Urine Negative (Negative); Protein Urine Neg (Negative); Urobilinogen Urine Norm (Negative); pH Urine 7 (5-7)
[2024-01-31 10:46] LABS: Add Urine Culture? No; Amorphous Sediment Urine 2+ /hpf; Bacteria Urine TRACE /hpf; RBC Urine 0-4 /hpf (0-2); Squamous Epithelial Cell Urine 0-4 /hpf (0-5)
== END 2024-01-31 11:40 | disposition home or self-care (01) ==
PROVIDERS: Emergency Provider Family Medicine
DX: K57.92 Diverticulitis of intestine, part unspecified, without perforation or abscess without bleeding (principal); Z72.0 Tobacco use
CPT/HCPCS: 36415; 74177; 80053; 81001; 83605; 85025; 96374; 96375; 99285; J2270; J2405; J7030; Q9967

== ENCOUNTER 2024-02-08 09:27 | Emergency (ER) | payer OTHER, SELFPAY ==
[2024-02-08 09:36] VITALS: BP 173/98; PULSE 104; RESP 17; TEMP 36.8; O2SAT 99
--- NOTE | 2024-02-08 09:54 | XR_ITS ---
WS: [id number] Exam: XR abdomen 1V* [id number] Date/Time of Exam: 02/08/2024 10:05 AM Reason For Exam: abd pain , constipation No bowel obstruction or free air. No sign of organ enlargement. Signs of prior cholecystectomy. Degen erative changes of the lumbar spine and hips. IMPRESSION: 1. No acute abdominal finding.
--- NOTE | 2024-02-08 10:20 | ED_ITS ---
HPI - Abdominal Pain 2 General: Chief Complaint: Abdominal Pain Stated Complaint: abd pain Time Seen by Provider: 02/08/24 09:41 History of Present Illness: Patient presents to the ER with worsening abdominal pain. Patient was seen here approximately 9 days ago and got a diagnosis of diverticulitis, he was sent home with Cipro Flagyl and hydrocodone. Patient says that the pain is worse than it was then. Patient is seen Dr. Herbert Lange for hemorrhoids and abdominal pain and is in the process of being worked up. Patient also says he has been constipated and had to disimpact himself manually 1 time even though he is taking laxatives and stool softeners. Review of Systems 2 General: Reports: 10 or more systems reviewed and unremarkable except in HPI and below PFSH ED 2 PFSH: Surgical History Hx laparoscopic cholecystectomy Hx of colonoscopy with polypectomy x2 Family History Mother Breast cancer Father Cancer Bone cancer Social History Smoking and tobacco/nicotine status: current every day tobacco/nicotine user Alcohol intake: never Physical Exam 2 Const: COMMON NORMALS: no acute distress, average body habitus, patient oriented x3, no limitations, healthy appearing, alert and well nourished HENMT: COMMON NORMALS: normocephalic, atraumatic, hearing grossly normal bilaterally, external ears normal, Normal external nose present, moist oral mucous membranes and oropharynx normal HEAD & SCALP: normocephalic and atraumatic NOSE: Normal external nose present EXTERNAL EAR: Yes external ears normal Neck/C-Spine: COMMON NORMALS: no JVD Chest: COMMONS NORMALS: normal inspection of the chest and normal palpation of entire chest wall Resp: COMMON NORMALS: normal respiratory effort, No retractions, No use of accessory muscles and clear to auscultation bilaterally AUSCULTATION: clear to auscultation bilaterally Cardio: COMMON NORMALS: no JVD, regular rate, regular rhythm, S1 normal heart sound present, S2 normal heart sound present, No gallops present (Cardio), No clicks present (Cardio), No murmurs present (Cardio) and No rub (Cardio) R ATE: regular rate RHYTHM: regular rhythm HEART SOUNDS: S1 normal heart sound present and S2 normal heart sound present GI: COMMON NORMALS: Normal to inspection, nondistended, normoactive bowel sounds present and Soft to palpation; negative for non-tender (Mildly diffusely tender) and negative for No hepatosplenomegaly present PALPATION: Yes Soft to palpation and No No hepatosplenomegaly present Neuro: COMMON NORMALS: patient oriented x3 SENSORIUM/ORIENTATION: Yes alert Course 2 Vital Signs: Vital signs: Vital Signs Temperature 98.3 F 02/08/24 09:36 Pulse Rate 104 H 02/08/24 09:36 Respiratory Rate 17 02/08/24 09:36 Blood Pressure 173/98 02/08/24 09:36 Pulse Oximetry 99 02/08/24 09:36 Oxygen Delivery Me thod Room Air 02/08/24 09:36 MDM - Abdominal Pain Medical Decision Making Physical exam performed lab work was obtained that included CBC CMP lipase CRP urine urine drug screen as well as abdominal x-ray. All of which was essentially benign. Patient was given 2 L bolus normal saline, 30 mg Toradol and 2 mg of morphine, 10 mg Reglan all which helped the pain. Patient be placed on daily senna, Reglan and Bentyl and was instructed to follow back up with Dr. Adrian carpenter R. Differential Diagnosis Likely abdominal pain, constipation and diverticulitis; Unlikely acute appendicitis, calculus of kidney, endometriosis, gastroenteritis, pancreatitis or small bowel obstruction Lab Data I reviewed the patient's lab results. 02/08/24 10:37 02/08/24 10:37 Labs/Radiology: Laboratory Results WBC 9.41 10^3/uL (3.29-11.43) 02/08/24 10:37 RBC 5.42 10^6/uL (3.85-5.65) 02/08/24 10:37 Hgb 17.30 g/dL (11.27-16.99) H 02/08/24 10:37 Hct 51.1 % (37-53) 02/08/24 10:37 MCV 94.3 fl (82-101) 02/08/24 10:37 MCH 31.9 pg (27-33) 02/08/24 10:37 MCHC 33.9 g/dL (30-55) 02/08/24 10:37 RDW 12.4 % (12.1-15.1) 02/08/24 10:37 Plt Count 230 10^3/cmm (157-399) 02/08/24 10:37 MPV 10.3 fL (7.4-10.4) 02/08/24 10:37 Neut % (Auto) 79.1 % 02/08/24 10:37 Lymph % (Auto) 11.9 % 02/08/24 10:37 [place] % (Auto) 6.7 % 02/08/24 10:37 Eos % (Auto) 0.7 % 02/08/24 10:37 Baso % (Auto) 0.6 % 02/08/24 10:37 Neut # (Auto) 7.44 10^3/uL (1.8-7.7) 02/08/24 10:37 Lymph # (Auto) 1.1 10^3/uL (0.8-4.8) 02/08/24 10:37 [place] # (Auto) 0.6 10^3/uL (0.2-0.9) 02/08/24 10:37 Eos # (Auto) 0.1 10^3/uL (0.0-0.8) 02/08/24 10:37 Baso # (Auto) 0.1 10^3/uL (0.0-0.1) 02/08/24 10:37 Nucleated RBC % (auto) 0 % 02/08/24 10:37 Nucleated RBCs # 0.0 /100WBC 02/08/24 10:37 Sodium 140 mmol/L (136-145) 02/08/24 10:37 Potassium 4.3 mmol/L (3.5-5.1) 02/08/24 10:37 Chloride 104 mmol/L (98-107) 02/08/24 10:37 Carbon Dioxide 24 mmol/L (22-29) 02/08/24 10:37 Anion Gap 16.3 (5-19) 02/08/24 10:37 BUN 15 mg/dL (8-23) 02/08/24 10:37 Creatinine 1.1 mg/dL (0.7-1.2) 02/08/24 10:37 GFR Calculation 68.1 mL/min (90-130) L 02/08/24 10:37 Glucose 100 mg/dL (65-115) 02/08/24 10:37 Calculated Osmolality 291 mOsm/kg (285-295) 02/08/24 10:37 Calcium 9.5 mg/dL (8.5-10.5) 02/08/24 10:37 Total Bilirubin 0.6 mg/dL (0.15-1.2) 02/08/24 10:37 AST 18 U/L (0-40) 02/08/24 10:37 ALT 42 U/L (0-41) H 02/08/24 10:37 Alkaline Phosphatase 93 U/L (40-130) 02/08/24 10:37 C-Reactive Protein 3.0 mg/L (0.0-4.9) 02/08/24 10:37 Total Protein 8.0 g/dL (6.6-8.7) 02/08/24 10:37 Albumin 4.5 g/dL (3.5-5.2) 02/08/24 10:37 Globulin 3.5 g/dL (1.3-4.6) 02/08/24 10:37 Lipase 33 U/L (13-60) 02/08/24 10:37 Urine Color [place] (Yellow) 02/08/24 12:30 Urine Appearance Cloudy (CLEAR) A 02/08/24 12:30 Urine pH 8 (5-7) H 02/08/24 12:30 Ur Specific [place] 1.020 (1.005-1.030) 02/08/24 12:30 Urine Protein Neg (Negative) 02/08/24 12:30 Urine Glucose (UA) Norm (Normal) 02/08/24 12:30 Urine Ketones 1+ (Negative) H 02/08/24 12:30 Urine Blood Neg (Negative) 02/08/24 12:30 Urine Nitrate Negative (Negative) 02/08/24 12:30 Urine Bilirubin Neg (Negative) 02/08/24 12:30 Prot Sulfosalicylic Acd Negative (Negative) 02/08/24 12:30 Urine Urobilinogen Norm mg/dL (Negative) 02/08/24 12:30 Ur Leukocyte Esterase Negative (Negative) 02/08/24 12:30 Urine RBC None /hpf (0-2) 02/08/24 12:30 Urine WBC Rare /hpf (0-5) 02/08/24 12:30 Ur Squamous Epith Cells Rare /hpf (0-5) 02/08/24 12:30 Amorphous Sediment Not Reportable 02/08/24 12:30 Urine Bacteria Trace /hpf (NONE) 02/08/24 12:30 Urine Mucus Trace /hpf 02/08/24 12:30 Urine Opiates Screen Positive ng/mL (Negative) H 02/08/24 12:30 Ur Barbiturates Screen Negative ng/mL (Negative) 02/08/24 12:30 Ur Phencyclidine Scrn Negative ng/mL (Negative) 02/08/24 12:30 Ur Amphetamines Screen Negative ng/mL (Negative) 02/08/24 12:30 U Benzodiazepines Scrn Negative ng/mL (Negative) 02/08/24 12:30 Urine Cocaine Screen Negative ng/mL (Negative) 02/08/24 12:30 U Marijuana (THC) Screen Positive ng/mL (Negative) H 02/08/24 12:30 All radiology interpretation(s) finalized by discharge Discharge Plan Discharge Patient Disposition: Home Clinical Impression: Abdominal pain Qualifiers: Abdominal location: unspecified location Qualified Code(s): R10.9 - Unspecified abdominal pain Condition: Stable Prescriptions: New Senna-S 8.6-50 mg tablet 1 tab-cap PO BID PRN (Reason: constipation) Qty: 30 0RF dicyclomine 20 mg tablet 20 mg PO QID PRN (Reason: abdominal pain) Qty: 30 0RF Reglan 10 mg tablet 10 mg PO Q6H PRN (Reason: nausea and vomiting) Qty: 14 0RF No Action ondansetron HCl 4 mg tablet 4 mg PO Q6H PRN (Reason: nausea and vomiting) Qty: 20 0RF hydrocodone-acetaminophen 5-325 mg tablet 1 tab PO Q6H PRN (Reason: pain) Qty: 25 0RF promethazine 25 mg tablet 25 mg PO Q6H PRN (Reason: nausea and vomiting) Qty: 20 0RF ciprofloxacin HCl [Cipro] 500 mg tablet 500 mg PO BID Qty: 20 0RF Rx Instructions: for 10 days (rx filled 01/31/24) metronidazole 500 mg tablet 500 mg PO BID 10 Days Qty: 20 0RF Rx Instructions: for 10 days (rx filled 01/31/24) Tums 500 500 mg calcium (1,250 mg) Tablet,Chewable 500 - 1,000 mg PO PRN Saline Laxative Solution See Rx Instructions .ROUTE .COMPLEX Rx Instructions: as directed as needed Stool Softener 100 mg Tablet 200 mg PO QPM Discharge Orders: Discharge ED (Routine); Ordered 02/08/24 Ordered By: Alcides Way Patient Instructions: Abdominal Pain (ED), Opioid Safety, Pain Management Activity Restrictions/Additional Instructions: Please follow-up with Dr. Sanchez for further evaluation and treatment of your chronic abdominal pain. Please take all medicine as directed. Please follow-up with your family practitioner within 7 to 10 days as needed. Coding Level of Care Code ED Environmental Professional for Kuldip Bar
[2024-02-08] MEDS: metoclopramide 5 mg/mL SDV 2 mL 10 MG IVP (10:35)
[2024-02-08] MEDS: sodium chloride 0.9% 1,000 ML 999 ML IV ×2 (10:35→13:46)
[2024-02-08] MEDS: ketorolac 30 mg/mL INJ IVP (10:36)
[2024-02-08 10:47] LABS: Basophils # 0.1 10^3/uL (0.0-0.1); Basophils % 0.6 %; Eosinophils # 0.1 10^3/uL (0.0-0.8); Eosinophils % 0.7 %; Hematocrit 51.1 % (37-53); Lymphocytes # 1.1 10^3/uL (0.8-4.8); Lymphocytes % 11.9 %; Mean Corpuscular HGB Conc 33.9 g/dL (30-55); Mean Corpuscular Hemoglobin 31.9 pg (27-33); Mean Corpuscular Volume 94.3 fl (82-101); Mean Platelet Volume 10.3 fL (7.4-10.4); Monocytes # 0.6 10^3/uL (0.2-0.9); Monocytes % 6.7 %; Neutrophils # 7.44 10^3/uL (1.8-7.7); Neutrophils % 79.1 %; Nucleated Red Blood Cells % 0 %; Platelet Count 230 10^3/cmm (157-399); Red Blood Count 5.42 10^6/uL (3.85-5.65); Red Cell Distribution Width 12.4 % (12.1-15.1); White Blood Count 9.41 10^3/uL (3.29-11.43)
--- NOTE | 2024-02-08 10:47 | PC.PHAR ---
pt states he takes care of his own medications-pt states the me sends him no medications-pt states he only takes the medications entered-pt states he no longer takes protonix 40mg daily ext shows last filled 01/08/24 30d/s
[2024-02-08 11:06] LABS: Alanine Aminotransferase 42 U/L (0-41); Albumin Level 4.5 g/dL (3.5-5.2); Alkaline Phosphatase 93 U/L (40-130); Aspartate Amino Transferase 18 U/L (0-40); Blood Urea Nitrogen 15 mg/dL (8-23); Calcium 9.5 mg/dL (8.5-10.5); Carbon Dioxide 24 mmol/L (22-29); Chloride 104 mmol/L (98-107); Globulin 3.5 g/dL (1.3-4.6); Glomerular Filtration Rate 68.1 mL/min (90-130); Glucose 100 mg/dL (65-115); Lipase 33 U/L (13-60); Osmolality Calculated 291 mOsm/kg (285-295); Sodium 140 mmol/L (136-145); Total Bilirubin 0.6 mg/dL (0.15-1.2)
[2024-02-08 11:08] LABS: Anion Gap 16.3 (5-19); Potassium 4.3 mmol/L (3.5-5.1)
[2024-02-08 12:57] LABS: Amphetamines Screen Urine Negative (Negative); Barbiturates Screen Urine Negative (Negative); Benzodiazepines Screen Urine Negative (Negative); Cocaine Screen Urine Negative (Negative); Opiate Screen Urine Positive (Negative); PCP Screen Urine Negative (Negative); THC Screen Urine Positive (Negative)
[2024-02-08 13:04] LABS: Add Urine Microscopic? YES; Bilirubin Urine Neg (Negative); Blood Urine Neg (Negative); Glucose Urine UA Norm (Normal); Ketones Urine 1+ (Negative); Leukocyte Esterase Urine Negative (Negative); Nitrate Urine Negative (Negative); Protein Urine Neg (Negative); Sulfosalicylic Acid Urine Negative (Negative); Urine Appearance Cloudy (CLEAR); Urine Color Amber (Yellow); Urobilinogen Urine Norm (Negative); pH Urine 8 (5-7)
[2024-02-08 13:09] LABS: Add Urine Culture? No; Bacteria Urine TRACE /hpf; Mucus Urine TRACE /hpf; Squamous Epithelial Cell Urine RARE /hpf (0-5); WBC Urine RARE /hpf (0-5)
[2024-02-08] MEDS: morphine 4 mg/mL SDV 1 mL 2 MG IVP (13:48)
[2024-02-08 15:03] VITALS: BP 165/100; PULSE 87; O2SAT 98
== END 2024-02-08 15:04 | disposition home or self-care (01) ==
PROVIDERS: Emergency Provider Emergency Medicine
DX: R10.9 Unspecified abdominal pain (principal); Z72.0 Tobacco use
CPT/HCPCS: 74018; 80053; 80306; 81001; 83690; 85025; 86140; 96361; 96374; 96375; 99284; J1885; J2270; J2765; J7030

== ENCOUNTER → 2024-02-20 11:33 | Outpatient (BNVA) | payer OTHER, SELFPAY | PROVIDERS: Visit Provider Surgery | DX: K57.92 Diverticulitis of intestine, part unspecified, without perforation or abscess without bleeding (principal); K40.90 Unilateral inguinal hernia, without obstruction or gangrene, not specified as recurrent | CPT/HCPCS: 99214 ==

== ENCOUNTER 2024-03-10 05:34 | Day surgery (SDC) | payer OTHER, SELFPAY ==
[2024-03-10] VITALS (14 sets, daily range): BP systolic 120–145; BP diastolic 74–110; PULSE 59–126; RESP 14–18; TEMP 36.3–36.5; O2SAT 90–98; BMI 27.1
--- NOTE | 2024-03-10 05:58 | W.PM.OPSFHP ---
Same Day Surgery H&P Indication for Procedure/HPI DATE OF PROCEDURE: March 10, 2024 CHIEF COMPLAINT/INDICATIONFOR SURGICAL PROCEDURE: right inguinal hernia PREOP DIAGNOSIS: right inguinal hernia PLANNED PROCEDURE: Operation Date: 03/10/24 07:00 Proposed Procedures p Laparoscopic Inguinal Hernia Repair ,possible open with mesh 81330, K40.90(Not Applicable) - Danny Barros MD Medications/Allergies* Home Medications Medication Instructions Recorded Confirmed Type calcium carbonate 500 - 1,000 mg PO PRN PRN Heartburn 02/08/24 03/07/24 History docusate sodium 100 mg tablet 200 mg PO QPM PRN Constipation 02/08/24 03/07/24 History (Stool Softener) sodium phosphates oral solution See Rx Instructions .Route 02/08/24 03/07/24 History .COMPLEX PRN Constipation Allergies/Adverse Reactions Allergy/AdvReac Type Severity Reaction Status Date / Time No Known Allergies Allergy Verified 03/07/24 09:28 Pertinent History/Comorbid Conditions* Surgical History (Updated 01/31/24 @ 08:24 by William Lundy DO) Hx laparoscopic cholecystectomy Hx of colonoscopy with polypectomy x2 Family History (Updated 08/27/23 @ 11:01 by YESY Lemus) Breast cancer Mother Cancer Father Bone cancer Social History Smoking and tobacco/nicotine status: former use of tobacco/nicotine Quit status (tobacco/nicotine): has quit using Year quit tobacco: august 2023 Former quit date comment: chewing nicotine gum & candy Alcohol intake: never Pertinent Exam Findings alert, oriented x 3, clear to auscultation bilaterally and regular rate & rhythm Recommendations Surgery/Procedure today Coding Level of Care Code Acute Code for Chg Fwsudha
[2024-03-10] MEDS: sodium chloride 0.9% 1,000 ML 30 ML IV (06:16)
[2024-03-10] MEDS: ceFAZolin 2,000 MG in sodium chloride 0.9% (plus) 50 ML 100 MG IV (06:54)
[2024-03-10] MEDS: lidocaine-epi 1% 20 mL INJ 10 ML INJECTION (07:32)
[2024-03-10] MEDS: BUPivacaine 0.25% INJ 10 mL INJECTION (07:32)
--- NOTE | 2024-03-10 08:33 | ANES.PREANE2 ---
Pre-Anesthetic Assessment Height/Weight: Height 1.83 m Weight 90.718 kg Temp Pulse Resp BP Pulse Ox O2 Del Method 97.6 F 59 L 18 124/74 98 Room Air 03/10/24 06:08 03/10/24 06:08 03/10/24 06:08 03/10/24 06:08 03/10/24 06:08 03/10/24 06:08 Preop Diagnosis: right inguinal hernia Operation Date: 03/10/24 07:00 Proposed Procedures p Laparoscopic Inguinal Hernia Repair ,possible open with mesh [id number], K40.90(Not Applicable) - Danny Barros MD Familial anesthetic complications: none Was Beta Colton taken within 24 hours: N/A Was Clonidine taken within 24 hours: N/A Last intake: Intake Last Liquid Date 03/09/24 Last Liquid Time 19:00 Last Solid Date 03/09/24 Last Solid Time 19:00 Social No alcohol and No tobacco (h/o smoking) Exam alert, oriented x 3, clear to auscultation bilaterally and regular rate & rhythm Airway Submandibular: within normal limits Cervical ROM: within normal limits Mallampati: Class II Dentition: chipped Pulmonary Chronic Obstructive Pulmonary Disease Anesthetic Plan ASA status: 2 Anesthesia: General Medications/Allergies Home Medications Medication Instructions Recorded Confirmed Last Taken Type ondansetron HCl 4 mg tablet 4 mg PO Q6H PRN nausea and 12/26/23 03/10/24 03/09/24 Rx vomiting #20 tabs hydrocodone 5 mg-acetaminophen 325 1 tab PO Q6H PRN pain #25 tabs 01/31/24 03/10/24 02/07/24 Rx mg tablet promethazine 25 mg tablet 25 mg PO Q6H PRN nausea and 01/31/24 03/10/24 03/09/24 Rx vomiting #20 tabs calcium carbonate 500 - 1,000 mg PO PRN PRN Heartburn 02/08/24 03/10/24 Unknown History dicyclomine 20 mg tablet 20 mg PO QID PRN abdominal pain 02/08/24 03/10/24 Unknown Rx #30 tabs docusate sodium 100 mg tablet 200 mg PO QPM PRN Constipation 02/08/24 03/10/24 Unknown History (Stool Softener) metoclopramide HCl 10 mg tablet 10 mg PO Q6H PRN nausea and 02/08/24 03/10/24 Unknown Rx (Reglan) vomiting #14 tabs sennosides 8.6 mg-docusate sodium 1 tab-cap PO BID PRN constipation 02/08/24 03/10/24 Unknown Rx 50 mg tablet (Senna-S) #30 tabs sodium phosphates oral solution See Rx Instructions .Route 02/08/24 03/10/24 Unknown History .COMPLEX PRN Constipation Allergies Allergy/AdvReac Type Severity Reaction Status Date / Time No Known Allergies Allergy Verified 03/10/24 06:05 Current Medications Generic Name Dose Route Start Last Admin Trade Name Freq PRN Reason Stop Dose Admin Sodium Chloride 1,000 mls @ 30 mls/hr 03/10/24 05:45 03/10/24 06:16 Sodium Chloride 0.9% IV 03/11/24 05:44 30 mls/hr .Q24H KALLI Administration PFSH Anesthesia Surgical History Hx laparoscopic cholecystectomy Hx of colonoscopy with polypectomy x2 Family History Mother Breast cancer Father Cancer Bone cancer Social History (Updated 02/20/24 @ 11:45 by Jacqueline Cuello MA) Smoking and tobacco/nicotine status: former use of tobacco/nicotine Quit status (tobacco/nicotine): has quit using Year quit tobacco: august 2023 Former quit date comment: chewing nicotine gum & candy Alcohol intake: never Data Anesthesia Cardiac Studies: No Data to Display
--- NOTE | 2024-03-10 09:02 | PM.OP ---
Operative Report Date of procedure: March 10, 2024 Pre-op diagnosis: Right inguinal hernia Post-op diagnosis: Indirect right inguinal hernia Post-op findings: There was a indirect right inguinal hernia, there was a small lipoma occupying the direct space. Procedure done: Laparoscopic repair of right inguinal hernia with mesh Implants: Large 3D max mesh right Surgeon: Danny Barros MD Manager Food Bever[employer]: [employer] OR Staff Estimated blood loss: 50 Complications: none apparent Brief History: 63-year-old male with a right inguinal hernia verified by imaging to presented for repair after discussion of all risk and benefits as documented my preop note. Procedure: Patient was brought into the OR, she was placed in the supine position. General anesthesia was given. The abdomen was prepped and draped in the usual sterile fashion after Heredia catheter was placed. Timeout was conducted. A 1.5 cm infraumbilical incision was made, the incision was deepened to subcutaneous tissue until the anterior rectus sheath was exposed. The anterior rectus sheath was then open with electrocautery, the rectus muscle was retracted laterally exposing the retrorectus space. The Spacemaker was placed in this space and advanced carefully to the retropubic incision. Under direct visualization the balloon was inflated. Balloon was then removed and replaced with 2 mm balloon trocar. Additional 5 mm trocars were placed in the suprapubic and infraumbilical location. Insufflation was achieved. Upon initial evaluation of the preperitoneal space small amount of bleeding was bleeding was noted coming from the level of the right side of the pelvic brim consistent with a small venous branch. Suction irrigation was used to evacuate any blood and then I proceeded to ligate critical view of safety of the myopectineal orifice was achieved. These venous branch with a 5 millimeter clip associate media planner. I then proceeded with developing of the lateral space of [facility]. Once the space was developed it was apparent that there was an indirect inguinal hernia containing the cord structures. With careful blunt dissection the indirect sac was reduced And the Cord Structures Were individualized and preserved. I then proceeded to place a large right-sided 3D max mesh in the space. The mesh was fakes to the pubic tubercle, adequate overlapping of the mesh over the direct indirect and femoral spaces was noted. The cavity was desufflated and Desufflated for 2 minutes and then reinsufflated to verify hemostasis and adequate Ms. position. Position was correct and hemostasis was achieved. I then displayed the cavity under direct visualization, all trocars were removed. The wounds were closed in layers using #0 Vicryl for the fascia of the anterior rectus sheath, #3-0 Vicryl for the subcutaneous tissue and #4 Monocryl for the skin. Dermabond was applied. At the end of the procedure all counts were correct, the patient tolerated well the procedure and was transferred to the PACU in stable condition.
[2024-03-10] MEDS: oxyCODONE 5 mg IR Tab/Cap PO (10:27)
--- NOTE | 2024-03-10 13:45 | ANE.PACU2 ---
Inpatient post-anesthesia follow up: Airway intact: Yes Vital signs: Temperature 97.4 F Pulse Rate 80 Respiratory Rate 18 Blood Pressure 139/80 Pulse Oximetry 95 Oxygen Delivery Me thod Room Air Oxygen Flow Rate Fraction of Inspir ed Oxygen Hydration adequate: Yes Nausea and vomiting: No Pain level: 3 Mental status: Baseline
== END 2024-03-10 10:45 | disposition home or self-care (01) ==
PROVIDERS: Visit Provider Surgery
PROC: (CPT 49650; principal; 2024-03-10 07:00)
DX: K40.90 Unilateral inguinal hernia, without obstruction or gangrene, not specified as recurrent (principal)
CPT/HCPCS: 49650; 51702; C1781; J0690; J1100; J1170; J2371; J2405; J2704; J2710; J3010; J3490; J7030

== ENCOUNTER → 2024-03-26 08:00 | Outpatient (BNVA) | payer OTHER, SELFPAY | PROVIDERS: Visit Provider Surgery | DX: R10.9 Unspecified abdominal pain (principal); Z98.890 Other specified postprocedural states | CPT/HCPCS: 99024 ==

== ENCOUNTER 2024-05-03 12:19 | Emergency (ER) | payer OTHER, SELFPAY ==
[2024-05-03 12:25] VITALS: BP 114/74; PULSE 85; RESP 17; TEMP 37.2; O2SAT 96; BMI 27.1
[2024-05-03 12:29] VITALS: BP 153/86; PULSE 73; RESP 18; TEMP 36.8; O2SAT 96
[2024-05-03 12:51] VITALS: BP 124/81; PULSE 75; O2SAT 94
--- NOTE | 2024-05-03 13:22 | ED_ITS ---
HPI - Male Genitourinary 2 General: Chief complaint: Urogenital-Male Stated complaint: bood in urin, stings when urinating Time Seen by Provider: 05/03/24 12:34 History of Present Illness: 63-year-old male presents to the emergen cy department chief complaint of having some mild dysuria patient [place] is a recent history of having a UTI approximonth ago he feels that his symptoms are likewise identical to what they were before patient endorses since last night he has had a low-grade fever as well as mild difficulty with urination and as well as mild pain he does not endorse any recent flank pain or side pain reporting no other associated symptoms. Associated symptoms: Deny dysuria, nausea or vomiting Review of Systems 2 General: Reports: 10 or more systems reviewed and unremarkable except in HPI and below Const: Reports: fever(s); Denies: chills, fatigue or malaise Eyes: Denies: change in vision or blurry vision Card: Denies: chest pain or palpitations Resp: Denies: dyspnea or productive cough GI: Denies: abdominal pain, nausea or vomiting : Reports: difficulty urinating, urinary frequency and urinary urgency; Denies: dysuria Musc: Denies: extremity pain or extremity swelling Skin/Breast: Denies: rash or pruritus Neuro: Denies: headache(s) Psych: Denies: anxiety or depression Meño/Lymph: Denies: easy bleeding All/Imm: Denies: urticaria, throat swelling or facial swelling PFSH ED 2 PFSH: Surgical History Hx laparoscopic cholecystectomy Hx of colonoscopy with polypectomy x2 Family History Mother Breast cancer Father Cancer Bone cancer Social History Smoking and tobacco/nicotine status: former use of tobacco/nicotine Quit status (tobacco/nicotine): has quit using Year quit tobacco: august 2023 Former quit date comment: chewing nicotine gum & candy Alcohol intake: never Physical Exam 2 Const: COMMON NORMALS: no acute distress, patient oriented x3 and healthy appearing HENMT: COMMON NORMALS: normocephalic and atraumatic HEAD & SCALP: n ormocephalic and atraumatic Eye: COMMON NORMALS: Equal, round and reactive pupils present and EOMs intact bilaterally PUPIL: Yes Equal, round and reactive pupils present Neck/C-Spine: COMMON NORMALS: full ROM, supple and no JVD Lymph: LYMPHATIC: no lymphadenopathy noted Chest: COMMONS NORMALS: normal inspection of the chest and normal palpation of entire chest wall Resp: COMMON NORMALS: normal respiratory effort, No retractions and clear to auscultation bilaterally EFFORT & INSPECTION: Yes able to speak in complete sentences and Yes symmetric chest movement AUSCULTATION: clear to auscultation bilaterally Cardio: COMMON NORMALS: no JVD, regular rate and regular rhythm RATE: r egular rate RHYTHM: regular rhythm GI: COMMON NORMALS: Normal to inspection, nondistended, normoactive bowel sounds present (Mild pain appreciated to suprapubic region otherwise soft nontender), Soft to palpation and non-tender INSPECTION: Yes normal to inspection PALPATION: Yes Soft to palpation : COMMON NORMALS: Yes no CVA tenderness BLADDER/KIDNEY EXAM: Yes no CVA tenderness Back/Pelvis: COMMON NORMALS: no CVA tenderness Extremity: COMMON NORMALS: normal to inspection and full ROM Neuro: COMMON NORMALS: patient oriented x3, CN's II-XII intact bilaterally, moves all extremities and no focal motor deficits Psych: COMMON NORMALS: mental status grossly normal, Normal thought process present, cooperative and normal affect THOUGHT PROCESS: Normal thought process present Skin: COMMON NORMALS: no rashes or lesions noted GENERAL SKIN EXAM: no rashes or lesions noted Course 2 Vital Signs: Vital signs: Vital Signs Temperature 98.2 F 05/03/24 12:29 Pulse Rate 75 05/03/24 12:51 Respiratory Rate 18 05/03/24 12:29 Blood Pressure 124/81 05/03/24 12:51 Pulse Oximetry 94 05/03/24 12:51 Oxygen Delivery Me thod Room Air 05/03/24 12:51 MDM - Male Medical Decision Making Due to patient's symptoms and condition urinalysis will be obtained we will continue to follow. Patient was found to have a considerable UTI did this lab work was initiated patient has no renal impairment or white count. Concerning findings suggestive of sepsis will be started the patient on ciprofloxacin tablets and diet I also advised further follow-up with primary care for further investigation and management of potential BPH causing urinary retention patient advised to further follow-up in 2 to 3 days in which to return the interim if any of his symptoms persist or worse. Lab Data 05/03/24 14:18 05/03/24 14:18 Laboratory Results WBC 9.99 10^3/uL (3.29-11.43) 05/03/24 14:18 RBC 4.75 10^6/uL (3.85-5.65) 05/03/24 14:18 Hgb 14.90 g/dL (11.27-16.99) 05/03/24 14:18 Hct 45.2 % (37-53) 05/03/24 14:18 MCV 95.2 fl (82-101) 05/03/24 14:18 MCH 31.4 pg (27-33) 05/03/24 14:18 MCHC 33.0 g/dL (30-55) 05/03/24 14:18 RDW 12.5 % (12.1-15.1) 05/03/24 14:18 Plt Count 191 10^3/cmm (157-399) 05/03/24 14:18 MPV 10.5 fL (7.4-10.4) H 05/03/24 14:18 Neut % (Auto) 79.6 % 05/03/24 14:18 Lymph % (Auto) 12.8 % 05/03/24 14:18 [place] % (Auto) 5.6 % 05/03/24 14:18 Eos % (Auto) 1.1 % 05/03/24 14:18 Baso % (Auto) 0.5 % 05/03/24 14:18 Neut # (Auto) 7.95 10^3/uL (1.8-7.7) H 05/03/24 14:18 Lymph # (Auto) 1.3 10^3/uL (0.8-4.8) 05/03/24 14:18 [place] # (Auto) 0.6 10^3/uL (0.2-0.9) 05/03/24 14:18 Eos # (Auto) 0.1 10^3/uL (0.0-0.8) 05/03/24 14:18 Baso # (Auto) 0.1 10^3/uL (0.0-0.1) 05/03/24 14:18 Nucleated RBC % (auto) 0 % 05/03/24 14:18 Nucleated RBCs # 0.0 /100WBC 05/03/24 14:18 Sodium 138 mmol/L (136-145) 05/03/24 14:18 Potassium 4.0 mmol/L (3.5-5.1) 05/03/24 14:18 Chloride 101 mmol/L (98-107) 05/03/24 14:18 Carbon Dioxide 27 mmol/L (22-29) 05/03/24 14:18 Anion Gap 14.0 (5-19) 05/03/24 14:18 BUN 13 mg/dL (8-23) 05/03/24 14:18 Creatinine 1.1 mg/dL (0.7-1.2) 05/03/24 14:18 GFR Calculation 68.1 mL/min (90-130) L 05/03/24 14:18 Glucose 89 mg/dL (65-115) 05/03/24 14:18 Calculated Osmolality 286 mOsm/kg (285-295) 05/03/24 14:18 Calcium 8.9 mg/dL (8.5-10.5) 05/03/24 14:18 Total Bilirubin 0.3 mg/dL (0.15-1.2) 05/03/24 14:18 AST 11 U/L (0-40) 05/03/24 14:18 ALT 15 U/L (0-41) 05/03/24 14:18 Alkaline Phosphatase 94 U/L (40-130) 05/03/24 14:18 Total Protein 7.0 g/dL (6.6-8.7) 05/03/24 14:18 Albumin 4.2 g/dL (3.5-5.2) 05/03/24 14:18 Globulin 2.8 g/dL (1.3-4.6) 05/03/24 14:18 Urine Color Yellow (Yellow) 05/03/24 12:33 Urine Appearance Cloudy (CLEAR) A 05/03/24 12:33 Urine pH 5 (5-7) 05/03/24 12:33 Ur Specific [place] 1.025 (1.005-1.030) 05/03/24 12:33 Urine Protein 1+ (Negative) H 05/03/24 12:33 Urine Glucose (UA) Norm (Normal) 05/03/24 12:33 Urine Ketones Negative (Negative) 05/03/24 12:33 Urine Blood 3+ (Negative) H 05/03/24 12:33 Urine Nitrate Positive (Negative) A 05/03/24 12:33 Urine Bilirubin Neg (Negative) 05/03/24 12:33 Urine Urobilinogen Norm mg/dL (Negative) 05/03/24 12:33 Ur Leukocyte Esterase 2+ (Negative) H 05/03/24 12:33 Urine RBC 10-15 /hpf (0-2) H 05/03/24 12:33 Urine WBC Too numerous to cnt /hpf (0-5) H 05/03/24 12:33 Ur Squamous Epith Cells None /hpf (0-5) 05/03/24 12:33 Amorphous Sediment Not Reportable 05/03/24 12:33 Urine Bacteria 1+ /hpf (NONE) H 05/03/24 12:33 No radiology studies performed this visit Discharge Plan Discharge Patient Disposition: Home Clinical Impression: Urinary tract infection Qualifiers: Urinary tract infection type: acute cystitis Condition: Stable Prescriptions: New ciprofloxacin HCl [Cipro] 500 mg tablet 500 mg PO Q12H Qty: 20 0RF No Action ondansetron HCl 4 mg tablet 4 mg PO Q6H PRN (Reason: nausea and vomiting) Qty: 20 0RF promethazine 25 mg tablet 25 mg PO Q6H PRN (Reason: nausea and vomiting) Qty: 20 0RF calcium carbonate 500 mg calcium (1,250 mg) Tablet,Chewable 500 - 1,000 mg PO PRN PRN (Reason: Heartburn) sodium phosphates Solution See Rx Instructions .ROUTE .COMPLEX PRN (Reason: Constipation) Rx Instructions: as directed as needed docusate sodium [Stool Softener] 100 mg Tablet 200 mg PO QPM PRN (Reason: Constipation) sennosides-docusate sodium [Senna-S] 8.6-50 mg tablet 1 tab-cap PO BID PRN (Reason: constipation) Qty: 30 0RF dicyclomine 20 mg tablet 20 mg PO QID PRN (Reason: abdominal pain) Qty: 30 0RF metoclopramide HCl [Reglan] 10 mg tablet 10 mg PO Q6H PRN (Reason: nausea and vomiting) Qty: 14 0RF Discharge Orders: Discharge ED (Routine); Ordered 05/03/24 Ordered By: Carl Becker Referrals: Pelon Chowdhury MD [Primary Care Provider] - 4-7 days Discharge Diet: Advance as tolerated Discharge Activity: Increase activity as tolerated Patient Instructions: Urinary Tract Infection in Men (ED) Activity Restrictions/Additional Instructions: Please further follow-up your primary care doctor in the next 1 week please take medications as prescribed drink plenty of fluids such as water to dilute your urine to reduce the bacterial load as well as reduce your time of having the infection in which please return the interim if any of your symptoms persist or worse. Coding Level of Care Code ED [employer] for Kuldip Bar
[2024-05-03 13:45] LABS: Protein Urine 1+ (Negative); Specific Gravity, Urine 1.025 (1.005-1.030); Urine Appearance Cloudy (CLEAR); Urine Color Yellow (Yellow); pH Urine 5 (5-7)
[2024-05-03 13:46] LABS: Add Urine Culture? Yes; Add Urine Microscopic? YES; Bacteria Urine 1+ /hpf; Bilirubin Urine Neg (Negative); Blood Urine 3+ (Negative); Glucose Urine UA Norm (Normal); Ketones Urine Negative (Negative); Leukocyte Esterase Urine 2+ (Negative); Nitrate Urine Positive (Negative); Urobilinogen Urine Norm (Negative); WBC Urine TOO NUMEROUS TO CNT /hpf (0-5)
[2024-05-03] MEDS: cefTRIAXone 1,000 mg SDV 1000 MG IVP (14:18)
[2024-05-03 14:23] LABS: Basophils # 0.1 10^3/uL (0.0-0.1); Basophils % 0.5 %; Eosinophils # 0.1 10^3/uL (0.0-0.8); Eosinophils % 1.1 %; Hematocrit 45.2 % (37-53); Lymphocytes # 1.3 10^3/uL (0.8-4.8); Lymphocytes % 12.8 %; Mean Corpuscular Hemoglobin 31.4 pg (27-33); Mean Corpuscular Volume 95.2 fl (82-101); Mean Platelet Volume 10.5 fL (7.4-10.4); Monocytes # 0.6 10^3/uL (0.2-0.9); Monocytes % 5.6 %; Neutrophils # 7.95 10^3/uL (1.8-7.7); Neutrophils % 79.6 %; Nucleated Red Blood Cells % 0 %; Platelet Count 191 10^3/cmm (157-399); Red Blood Count 4.75 10^6/uL (3.85-5.65); Red Cell Distribution Width 12.5 % (12.1-15.1); White Blood Count 9.99 10^3/uL (3.29-11.43)
[2024-05-03 14:44] LABS: Alanine Aminotransferase 15 U/L (0-41); Albumin Level 4.2 g/dL (3.5-5.2); Alkaline Phosphatase 94 U/L (40-130); Aspartate Amino Transferase 11 U/L (0-40); Blood Urea Nitrogen 13 mg/dL (8-23); Calcium 8.9 mg/dL (8.5-10.5); Carbon Dioxide 27 mmol/L (22-29); Chloride 101 mmol/L (98-107); Globulin 2.8 g/dL (1.3-4.6); Glomerular Filtration Rate 68.1 mL/min (90-130); Glucose 89 mg/dL (65-115); Osmolality Calculated 286 mOsm/kg (285-295); Sodium 138 mmol/L (136-145); Total Bilirubin 0.3 mg/dL (0.15-1.2)
[2024-05-03 15:44] VITALS: BP 124/81; PULSE 75; RESP 18; TEMP 36.8; O2SAT 94
== END 2024-05-03 15:46 | disposition home or self-care (01) ==
PROVIDERS: Emergency Provider Emergency Medicine
DX: N30.00 Acute cystitis without hematuria (principal); Z87.891 Personal history of nicotine dependence
CPT/HCPCS: 80053; 81001; 85025; 87077; 87086; 87186; 96374; 99284; J0696

== ENCOUNTER 2024-08-27 14:17 | Emergency (ER) | payer OTHER, SELFPAY ==
[2024-08-27] VITALS (7 sets, daily range): BP systolic 101–165; BP diastolic 65–107; PULSE 70–101; RESP 16–20; TEMP 36.7; O2SAT 94–99; BMI 25.7
--- NOTE | 2024-08-27 14:35 | CTR_ITS ---
PROCEDURE INFORMATION: Exam: CT Abdomen And Pelvis With Contrast Exam date and time: 08/27/2024 4:39 PM Age: 63 years old Clinical indication: Abdominal pain; Additional info: Abd pain TECHNIQUE: Imaging protocol: Computed tomography of the abdomen and pelvis with contrast. Radiation optimization: All CT scans at this facility use at least one of these dose optimization techniques: automated exposure control; mA and/or kV adjustment per patient size (includes targeted exams where dose is matched to clinical indication); or iterative reconstruction. Contrast material: OMNI 350; Contrast volume: 100 ml; Contrast route: INTRAVENOUS (IV); COMPARISON: CT abdomen pelvis w con* [id number] 01/31/2024 9:15 AM RADIATION DOSE METRICS: Total DLP (mGy-cm): 619.98 FINDINGS: Lungs: Lung bases are clear. No pleural effusion. Liver: Normal. No mass. Gallbladder and biliary ducts: The gallbladder has been resected. Pancreas: Normal. No ductal dilation. Spleen: Normal. No splenomegaly. Adrenal glands: Normal. No mass. Kidneys and ureters: Normal. No hydronephrosis. Stomach and bowel: Multiple diverticula involve the sigmoid colon. There is no sign of diverticulitis. Appendix: No evidence of appendicitis. Intraperitoneal space: Unremarkable. No free air. No significant fluid collection. Vasculature: Unremarkable. No abdominal aortic aneurysm. Lymph nodes: Unremarkable. No enlarged lymph nodes. Urinary bladder: Unremarkable as visualized. Reproductive: Unremarkable as visualized. Bones/joints: Prominent arthritic change involves the left hip joint. Soft tissues: Unremarkable. CT/CT abdomen pelvis w con* [id number] IMPRESSION: 1. No acute findings. 2. Sigmoid diverticulosis
--- NOTE | 2024-08-27 14:39 | ED_ITS ---
HPI - Abdominal Pain 2 General: Chief Complaint: Abdominal Pain Stated Complaint: Abd Pain Time Seen by Provider: 08/27/24 14:28 Source: patient Mode of arrival: ambulatory Limitations: no limitations History of Present Illness: 63-year-old male states he has had chron ic abdominal pain he states has had abdominal issues for over a year been progressively getting worse he states he has a GI appointment [place] on Sunday but states he has had worsening pain he states pain is diffuse in nature he has issues with constipation and vomiting he denies any fevers rates his pain a 9 out of 10 currently and states is diffuse Associated Symptoms: Denies chills, diarrhea, dysuria, fever(s), nausea and vomiting Related Data Home Medications Medication Instructions Recorded Confirmed calcium carbonate 500 - 1,000 mg PO PRN PRN Heartburn 02/08/24 03/26/24 docusate sodium 100 mg tablet 200 mg PO QPM PRN Constipation 02/08/24 03/26/24 (Stool Softener) sodium phosphates oral solution See Rx Instructions .Route 02/08/24 03/26/24 .COMPLEX PRN Constipation Previous Rx's Medication Instructions Recorded ondansetron HCl 4 mg tablet 4 mg PO Q6H PRN nausea and 12/26/23 vomiting #20 tabs promethazine 25 mg tablet 25 mg PO Q6H PRN nausea and 01/31/24 vomiting #20 tabs dicyclomine 20 mg tablet 20 mg PO QID PRN abdominal pain 02/08/24 #30 tabs metoclopramide HCl 10 mg tablet 10 mg PO Q6H PRN nausea and 02/08/24 (Reglan) vomiting #14 tabs sennosides 8.6 mg-docusate sodium 1 tab-cap PO BID PRN constipation 02/08/24 50 mg tablet (Senna-S) #30 tabs ciprofloxacin HCl 500 mg tablet 500 mg PO Q12H #20 tabs 05/03/24 (Cipro) hydrocodone 5 mg-acetaminophen 325 1 tab PO Q6H PRN pain #14 tabs 08/27/24 mg tablet ondansetron 4 mg disintegrating 4 mg PO Q6H PRN nausea and 08/27/24 tablet vomiting #14 tabs Allergies Allergy/AdvReac Type Severity Reaction Status Date / Time No Known Allergies Allergy Verified 03/26/24 08:08 Review of Systems 2 Const: Denies: fever(s), chills, body aches or change in appetite ENMT: Denies: throat pain or dental pain Card: Denies: chest pain Resp: Denies: dyspnea GI: Reports: abdominal pain; Denies: nausea, vomiting or diarrhea : Denies: dysuria Musc: Denies: neck pain or back pain Skin/Breast: Denies: rash Neuro: Denies: headache(s) PFSH ED 2 PFSH: Surgical History Hx laparoscopic cholecystectomy Hx of colonoscopy with polypectomy x2 Family History Mother Breast cancer Father Cancer Bone cancer Social History Smoking and tobacco/nicotine status: former use of tobacco/nicotine Quit status (tobacco/nicotine): has quit using Year quit tobacco: august 2023 Former quit date comment: chewing nicotine gum & candy Alcohol intake: never Physical Exam 2 Const: COMMON NORMALS: no acute distress, patient oriented x3 and healthy appearing HENMT: COMMON NORMALS: normocephalic and atraumatic HEAD & SCALP: n ormocephalic and atraumatic Neck/C-Spine: COMMON NORMALS: full ROM and supple Chest: COMMONS NORMALS: normal inspection of the chest Resp: COMMON NORMALS: normal respiratory effort, No retractions, No use of accessory muscles and clear to auscultation bilaterally AUSCULTATION: clear to auscultation bilaterally Cardio: COMMON NORMALS: regular rate, regular rhythm and No murmurs present (Cardio) RATE: regular rate RHYTHM: regular rhythm GI: COMMON NORMALS: Normal to inspection, nondistended, normoactive bowel sounds present, Soft to palpation and no masses PALPATION: Yes Soft to palpation OTHER: diffusely tender Extremity: COMMON NORMALS: normal to inspection and full ROM Neuro: COMMON NORMALS: patient oriented x3, moves all extremities and no focal motor deficits Psych: COMMON NORMALS: mental status grossly normal, Normal thought process present and cooperative THOUGHT PROCESS: Normal thought process present Skin: COMMON NORMALS: no rashes or lesions noted and no wounds GENERAL SKIN EXAM: no rashes or lesions noted Course 2 Vital Signs: Vital signs: Vital Signs Temperature 98.1 F 08/27/24 14:20 Pulse Rate 70 08/27/24 16:19 Respiratory Rate 16 08/27/24 16:19 Blood Pressure 101/65 08/27/24 16:19 Pulse Oximetry 94 08/27/24 16:19 Oxygen Delivery Me thod Room Air 08/27/24 16:19 MDM - Abdominal Pain Medical Decision Making Patient presents abdominal pains been chronic in nature CT scan showed no acute findings he is follow-up with GI on Sunday will prescribe pain meds blood works normal his pain has improved here abdominal exam at discharge benign he is to return if worsening he understands agrees to plan. Medical Records I reviewed the patient's medical records. Lab Data I reviewed the patient's lab results. 08/27/24 14:48 08/27/24 14:48 Labs/Radiology: Radiology Impressions Abdomen/Pelvis CT 08/27/24 14:35 IMPRESSION: 1. No acute findings. 2. Sigmoid diverticulosis Laboratory Results WBC 9.70 10^3/uL (3.29-11.43) 08/27/24 14:48 RBC 5.54 10^6/uL (3.85-5.65) 08/27/24 14:48 Hgb 17.60 g/dL (11.27-16.99) H 08/27/24 14:48 Hct 52.8 % (37-53) 08/27/24 14:48 MCV 95.3 fl (82-101) 08/27/24 14:48 MCH 31.8 pg (27-33) 08/27/24 14:48 MCHC 33.3 g/dL (30-55) 08/27/24 14:48 RDW 12.8 % (12.1-15.1) 08/27/24 14:48 Plt Count 167 10^3/cmm (157-399) 08/27/24 14:48 MPV 10.2 fL (7.4-10.4) 08/27/24 14:48 Neut % (Auto) 72.8 % 08/27/24 14:48 Lymph % (Auto) 16.3 % 08/27/24 14:48 [place] % (Auto) 9.0 % 08/27/24 14:48 Eos % (Auto) 1.0 % 08/27/24 14:48 Baso % (Auto) 0.4 % 08/27/24 14:48 Neut # (Auto) 7.06 10^3/uL (1.8-7.7) 08/27/24 14:48 Lymph # (Auto) 1.6 10^3/uL (0.8-4.8) 08/27/24 14:48 [place] # (Auto) 0.9 10^3/uL (0.2-0.9) 08/27/24 14:48 Eos # (Auto) 0.1 10^3/uL (0.0-0.8) 08/27/24 14:48 Baso # (Auto) 0.0 10^3/uL (0.0-0.1) 08/27/24 14:48 Nucleated RBC % (auto) 0 % 08/27/24 14:48 Nucleated RBCs # 0.0 /100WBC 08/27/24 14:48 Sodium 139 mmol/L (136-145) 08/27/24 14:48 Potassium 3.9 mmol/L (3.5-5.1) 08/27/24 14:48 Chloride 99 mmol/L (98-107) 08/27/24 14:48 Carbon Dioxide 27 mmol/L (22-29) 08/27/24 14:48 Anion Gap 16.9 (5-19) 08/27/24 14:48 BUN 19 mg/dL (8-23) 08/27/24 14:48 Creatinine 1.0 mg/dL (0.7-1.2) 08/27/24 14:48 GFR Calculation 76.0 mL/min (90-130) L 08/27/24 14:48 Glucose 98 mg/dL (65-115) 08/27/24 14:48 Calculated Osmolality 290 mOsm/kg (285-295) 08/27/24 14:48 Calcium 9.5 mg/dL (8.5-10.5) 08/27/24 14:48 Total Bilirubin 0.8 mg/dL (0.15-1.2) 08/27/24 14:48 AST 9 U/L (0-40) 08/27/24 14:48 ALT 14 U/L (0-41) 08/27/24 14:48 Alkaline Phosphatase 98 U/L (40-130) 08/27/24 14:48 Total Protein 6.7 g/dL (6.6-8.7) 08/27/24 14:48 Albumin 4.6 g/dL (3.5-5.2) 08/27/24 14:48 Globulin 2.1 g/dL (1.3-4.6) 08/27/24 14:48 Lipase 23 U/L (13-60) 08/27/24 14:48 Urine Color Dark yellow (Yellow) A 08/27/24 15:02 Urine Appearance Clear (CLEAR) 08/27/24 15:02 Urine pH 5.5 (5-7) 08/27/24 15:02 Ur Specific Gilbert 1.035 (1.005-1.030) H 08/27/24 15:02 Urine Protein Trace (Negative) A 08/27/24 15:02 Urine Glucose (UA) Negative (Normal) 08/27/24 15:02 Urine Ketones Trace (Negative) 08/27/24 15:02 Urine Blood Negative (Negative) 08/27/24 15:02 Urine Nitrate Negative (Negative) 08/27/24 15:02 Urine Bilirubin Negative (Negative) 08/27/24 15:02 Urine Urobilinogen 1.0 mg/dL (Negative) 08/27/24 15:02 Ur Leukocyte Esterase Negative (Negative) 08/27/24 15:02 Urine RBC 3-5 /hpf (0-2) 08/27/24 15:02 Urine WBC 0-5 /hpf (0-5) 08/27/24 15:02 Ur Squamous Epith Cells 0-5 /hpf (0-5) 08/27/24 15:02 Amorphous Sediment Not Reportable 08/27/24 15:02 Urine Bacteria None seen /hpf (NONE) 08/27/24 15:02 Hyaline Casts 7.01 /lpf 08/27/24 15:02 All radiology interpretation(s) finalized by discharge Discharge Plan Discharge Patient Disposition: Home Clinical Impression: Abdominal pain Qualifiers: Abdominal location: unspecified location Qualified Code(s): R10.9 - Unspecified abdominal pain Condition: Stable Prescriptions: New hydrocodone-acetaminophen 5-325 mg tablet 1 tab PO Q6H PRN (Reason: pain) Qty: 14 0RF ondansetron 4 mg tablet,disintegrating 4 mg PO Q6H PRN (Reason: nausea and vomiting) Qty: 14 0RF No Action ondansetron HCl 4 mg tablet 4 mg PO Q6H PRN (Reason: nausea and vomiting) Qty: 20 0RF promethazine 25 mg tablet 25 mg PO Q6H PRN (Reason: nausea and vomiting) Qty: 20 0RF Cipro 500 mg tablet 500 mg PO Q12H Qty: 20 0RF calcium carbonate 500 mg calcium (1,250 mg) Tablet,Chewable 500 - 1,000 mg PO PRN PRN (Reason: Heartburn) sodium phosphates Solution See Rx Instructions .ROUTE .COMPLEX PRN (Reason: Constipation) Rx Instructions: as directed as needed docusate sodium [Stool Softener] 100 mg Tablet 200 mg PO QPM PRN (Reason: Constipation) sennosides-docusate sodium [Senna-S] 8.6-50 mg tablet 1 tab-cap PO BID PRN (Reason: constipation) Qty: 30 0RF dicyclomine 20 mg tablet 20 mg PO QID PRN (Reason: abdominal pain) Qty: 30 0RF metoclopramide HCl [Reglan] 10 mg tablet 10 mg PO Q6H PRN (Reason: nausea and vomiting) Qty: 14 0RF Discharge Orders: Discharge ED (Routine); Ordered 08/27/24 Ordered By: Jeyson Cedra Referrals: Pelon Chowdhury MD [Primary Care Provider] - 4-7 days Discharge Diet: Advance as tolerated Discharge Activity: Resume usual activity Patient Instructions: Abdominal Pain (ED) Coding Level of Care Code ED Cigar Inspector for Kuldip Bar
[2024-08-27] MEDS: sodium chloride 0.9% 1,000 ML 999 ML IV (14:55)
[2024-08-27] MEDS: ondansetron 2 mg/ML SDV 2 mL 4 MG IVP (14:56)
[2024-08-27] MEDS: HYDROmorphone 1 mg/mL INJ 1 mL 0.5 MG IVP (14:56)
[2024-08-27 15:02] LABS: Basophils % 0.4 %; Eosinophils # 0.1 10^3/uL (0.0-0.8); Hematocrit 52.8 % (37-53); Lymphocytes # 1.6 10^3/uL (0.8-4.8); Lymphocytes % 16.3 %; Mean Corpuscular HGB Conc 33.3 g/dL (30-55); Mean Corpuscular Hemoglobin 31.8 pg (27-33); Mean Corpuscular Volume 95.3 fl (82-101); Mean Platelet Volume 10.2 fL (7.4-10.4); Monocytes # 0.9 10^3/uL (0.2-0.9); Neutrophils # 7.06 10^3/uL (1.8-7.7); Neutrophils % 72.8 %; Nucleated Red Blood Cells % 0 %; Platelet Count 167 10^3/cmm (157-399); Red Blood Count 5.54 10^6/uL (3.85-5.65); Red Cell Distribution Width 12.8 % (12.1-15.1)
[2024-08-27 15:22] LABS: Alanine Aminotransferase 14 U/L (0-41); Albumin Level 4.6 g/dL (3.5-5.2); Alkaline Phosphatase 98 U/L (40-130); Anion Gap 16.9 (5-19); Aspartate Amino Transferase 9 U/L (0-40); Blood Urea Nitrogen 19 mg/dL (8-23); Calcium 9.5 mg/dL (8.5-10.5); Carbon Dioxide 27 mmol/L (22-29); Chloride 99 mmol/L (98-107); Creatinine Clr Calc Pharmacy 93.9301; Globulin 2.1 g/dL (1.3-4.6); Glucose 98 mg/dL (65-115); Lipase 23 U/L (13-60); Osmolality Calculated 290 mOsm/kg (285-295); Potassium 3.9 mmol/L (3.5-5.1); Sodium 139 mmol/L (136-145); Total Bilirubin 0.8 mg/dL (0.15-1.2); Total Protein 6.7 g/dL (6.6-8.7)
[2024-08-27 15:27] LABS: Bilirubin Urine Negative (Negative); Blood Urine Negative (Negative); Glucose Urine UA Negative (Normal); Ketones Urine Trace (Negative); Leukocyte Esterase Urine Negative (Negative); Nitrate Urine Negative (Negative); Protein Urine Trace (Negative); Urine Appearance Clear (CLEAR); Urine Color Dark Yellow (Yellow); pH Urine 5.5 (5-7)
[2024-08-27 15:31] LABS: Add Urine Microscopic? YES; Bacteria Urine None Seen /hpf; Hyaline Casts Urine 7.01 /lpf; Squamous Epithelial Cell Urine 0-5 /hpf (0-5); WBC Urine 0-5 /hpf (0-5)
[2024-08-27 15:33] LABS: Specific Gravity, Urine 1.035 (1.005-1.030)
[2024-08-27] MEDS: iohexol 350 mg/mL 500 mL Btl (per mL) IV (16:42)
== END 2024-08-27 17:57 | disposition home or self-care (01) ==
PROVIDERS: Emergency Provider Emergency Medicine
DX: R10.9 Unspecified abdominal pain (principal); Z87.891 Personal history of nicotine dependence
CPT/HCPCS: 74177; 80053; 81001; 83690; 85025; 96361; 96374; 96375; 99285; J1171; J2405; J7030

== ENCOUNTER 2024-12-03 13:26 | Emergency (ER) | payer OTHER, SELFPAY ==
[2024-12-03 14:11] VITALS: BP 184/122; PULSE 85; RESP 18; TEMP 36.8; O2SAT 97; BMI 27.1
[2024-12-03 15:31] LABS: Basophils % 0.3 %; Eosinophils % 0.1 %; Hematocrit 55.1 % (37-53); Lymphocytes # 1.3 10^3/uL (0.8-4.8); Lymphocytes % 10.4 %; Mean Platelet Volume 10.1 fL (7.4-10.4); Monocytes % 7.7 %; Neutrophils % 81.1 %; Nucleated Red Blood Cells % 0 %; Platelet Count 187 10^3/cmm (157-399); Red Blood Count 5.68 10^6/uL (3.85-5.65); Red Cell Distribution Width 12.5 % (12.1-15.1); White Blood Count 12.45 10^3/uL (3.29-11.43)
[2024-12-03 15:52] LABS: Alanine Aminotransferase 32 U/L (0-41); Albumin Level 4.8 g/dL (3.5-5.2); Alkaline Phosphatase 100 U/L (40-130); Blood Urea Nitrogen 24 mg/dL (8-23); Calcium 10.1 mg/dL (8.5-10.5); Carbon Dioxide 29 mmol/L (22-29); Chloride 97 mmol/L (98-107); Creatinine Clr Calc Pharmacy 99.7235; Glomerular Filtration Rate 85.5 mL/min (90-130); Glucose 112 mg/dL (65-115); Lipase 20 U/L (13-60); Osmolality Calculated 295 mOsm/kg (285-295); Sodium 140 mmol/L (136-145); Total Bilirubin 1.1 mg/dL (0.15-1.2); Total Protein 7.8 g/dL (6.6-8.7)
[2024-12-03 15:54] LABS: Aspartate Amino Transferase 18 U/L (0-40)
--- NOTE | 2024-12-03 18:01 | CTR_ITS ---
PROCEDURE INFORMATION: Exam: CT Abdomen And Pelvis With Contrast Exam date and time: 12/03/2024 6:42 PM Age: 64 years old Clinical indication: Abdominal pain; Generalized; Additional info: Diffuse abd pain x3 days, vomiting TECHNIQUE: Imaging protocol: Computed tomography of the abdomen and pelvis with contrast. Radiation optimization: All CT scans at this facility use at least one of these dose optimization techniques: automated exposure control; mA and/or kV adjustment per patient size (includes targeted exams where dose is matched to clinical indication); or iterative reconstruction. Contrast material: OMNIPAQUE 350; Contrast volume: 100 ml; Contrast route: INTRAVENOUS (IV); COMPARISON: CT abdomen pelvis w con* [id number] 08/27/2024 4:39 PM RADIATION DOSE METRICS: Total DLP (mGy-cm): 644.9 FINDINGS: Liver: Normal. No mass. Gallbladder and biliary ducts: The gallbladder is absent. Pancreas: Normal. No ductal dilation. Spleen: Normal. No splenomegaly. Adrenal glands: Normal. No mass. Kidneys and ureters: Normal. No hydronephrosis. Stomach and bowel: Unremarkable. No obstruction. No mucosal thickening. Appendix: No evidence of appendicitis. Intraperitoneal space: Unremarkable. No free air. No significant fluid collection. Vasculature: Unremarkable. No abdominal aortic aneurysm. Lymph nodes: Unremarkable. No enlarged lymph nodes. Urinary bladder: Unremarkable as visualized. Reproductive: Unremarkable as visualized. Bones/joints: Unremarkable. No acute fracture. Soft tissues: Fat containing left inguinal hernia. CT/CT abdomen pelvis w con* [id number] IMPRESSION: 1. No bowel obstruction or inflammatory process associated with the bowel. 2. No free air or significant free fluid in the abdomen or pelvis. 3. No evidence of appendicitis.
--- NOTE | 2024-12-03 18:02 | ED_ITS ---
HPI - Abdominal Pain 2 General: Chief Complaint: Abdominal Pain Stated Complaint: abd pain Time Seen by Provider: 12/03/24 17:35 Source: patient Mode of arrival: ambulatory Limitations: no limitations History of Present Illness: Patient is a 64-year-old male with past surgical history of cholecystectomy who presents the emergency department complaining of 3 days of diffuse abdominal pain. States that he has also been nauseous and has been vomiting bile, reports a history of diverticulitis as well and states this is how he gets with flareups. He notes last week he had 1 episode of blood in his stool, but is not having any current diarrhea or hematochezia. He also states he has not been running fevers, has not been taking any medications for his pain. Pain noted to radiate into his back. He is not reporting any chest pain, shortness of breath, urinary symptoms, syncopal episodes, or any other symptoms. Hypertensive on arrival, rest of his vitals within normal limits. Appearing uncomfortable on exam. He notes that he does still have his appendix. Pain has been constant since onset, he is not reporting any specific alleviating or exacerbating factors and no temporal pattern noted. MD elicited complaint: abdominal pain Pertinent past history: diverticulitis Onset (ago): day(s) (3) Pain Consistency: constant Location: Diffuse Severity: moderate Quality: cramping Radiation: back Exacerbating factors: nothing Relieving factors: nothing Associated Symptoms: Reports hematochezia, nausea and vomiting; Denies bloating, change in stool character, chills, constipation, diarrhea, dysuria and fever(s) Related Data Home Medications ?Medication ?Instructions ?Recorded ?Confirmed calcium carbonate 500 - 1,000 mg PO PRN PRN He artburn 02/08/24 03/26/24 docusate sodium 100 mg tablet 200 mg PO QPM PRN Consti pation 02/08/24 03/26/24 (Stool Softener) sodium phosphates oral solution See Rx Instructions .R oute 02/08/24 03/26/24 .COMPLEX PRN Constipation Previous Rx's ?Medication ?Instructions ?Recorded ondansetron HCl 4 mg tablet 4 mg PO Q6H PRN nausea and 12/26/23 vomiting #20 tabs promethazine 25 mg tablet 25 mg PO Q6H PRN nausea and 01/31/24 vomiting #20 tabs dicyclomine 20 mg tablet 20 mg PO QID PRN abdominal p ain 02/08/24 #30 tabs metoclopramide HCl 10 mg tablet 10 mg PO Q6H PRN nause a and 02/08/24 (Reglan) vomiting #14 tabs sennosides 8.6 mg-docusate sodium 1 tab-cap PO BID PRN constipation 02/08/24 50 mg tablet (Senna-S) #30 tabs ciprofloxacin HCl 500 mg tablet 500 mg PO Q12H #20 tab s 05/03/24 (Cipro) hydrocodone 5 mg-acetaminophen 325 1 tab PO Q6H PRN pa in #14 tabs 08/27/24 mg tablet ondansetron 4 mg disintegrating 4 mg PO Q6H PRN nausea and 08/27/24 tablet vomiting #14 tabs prednisone 20 mg tablet 60 mg (3 x 20 mg) PO ONCE 5 days 12/03/24 #15 tabs Allergies Allergy/AdvReac Type Severity Reaction Status Date / Time No Known Allergies Allergy Verified 12/03/24 14:14 Review of Systems 2 General: Reports: 10 or more systems reviewed and unremarkable except in HPI and below Const: Denies: fever(s), chills, change in appetite, change in weight or diaphoresis ENMT: Denies: throat pain or hoarseness Card: Denies: chest pain, palpitations or lightheadedness Resp: Denies: dyspnea, productive cough or wheezing GI: Reports: abdominal pain, nausea, vomiting and hematochezia; Denies: diarrhea, constipation, bloating or change in stool character : Denies: flank pain, difficulty urinating, dysuria, urinary frequency or urinary urgency Musc: Denies: neck pain or back pain Skin/Breast: Denies: rash or new lesions Neuro: Denies: headache(s) or dizziness PFSH ED 2 PFSH: Surgical History Hx laparoscopic cholecystectomy Hx of colonoscopy with polypectomy x2 Family History Mother Breast cancer Father Cancer Bone cancer Social History Smoking and tobacco/nicotine status: former use of tobacco/nicotine Quit status (tobacco/nicotine): has quit using Year quit tobacco: august 2023 Former quit date comment: chewing nicotine gum & candy Alcohol intake: never Physical Exam 2 Const: COMMON NORMALS: patient oriented x3, alert and well nourished G ENERAL APPEARANCE: cooperative ORIENTATION/CONSCIOUSNESS: Yes awake OTHER: Appears uncomfortable HENMT: COMMON NORMALS: normocephalic, atraumatic and oropharynx normal HEAD & SCALP: normocephalic and atraumatic OTHER: Dry oral mucosa, cracked tongue Eye: COMMON NORMALS: EOMs intact bilaterally, conjunctivae normal and no scleral icterus CONJUNCTIVA: Yes conjunctivae normal Neck/C-Spine: COMMON NORMALS: full ROM Resp: COMMON NORMALS: normal respiratory effort, No retractions, No use of accessory muscles and clear to auscultation bilaterally AUSCULTATION: clear to auscultation bilaterally Cardio: COMMON NORMALS: regular rate, regular rhythm, S1 normal heart sound present, S2 normal heart sound present, No gallops present (Cardio), No murmurs present (Cardio) and No rub (Cardio) RATE: regular rate RHYTHM: regular rhythm HEART SOUNDS: S1 normal heart sound present and S2 normal heart sound present GI: COMMON NORMALS: Normal to inspection, nondistended, normoactive bowel sounds present and Soft to palpation PALPATION: Yes Soft to palpation O THER: Diffuse tenderness to palpation of the abdomen, negative McBurney's point tenderness Extremity: COMMON NORMALS: normal to inspection, full ROM, capillary refill normal and no pedal edema Neuro: COMMON NORMALS: patient oriented x3, moves all extremities, no focal motor deficits and no sensory deficits noted SENSORIUM/ORIENTATION: Yes alert Skin: COMMON NORMALS: no rashes or lesions noted GENERAL SKIN EXAM: no rashes or lesions noted Course 2 Vital Signs: Vital signs: Vital Signs Temperature 98.2 F 12/03/24 14:11 Pulse Rate 85 12/03/24 14:11 Respiratory Rate 18 12/03/24 14:11 Blood Pressure 184/122 12/03/24 14:11 Pulse Oximetry 97 12/03/24 14:11 Oxygen Delivery Me thod Room Air 12/03/24 14:11 MDM - Abdominal Pain Medical Decision Making Patient has 3 days of abdominal pain. He was stating he was sure it was diverticulitis as he has a history of this. However on CT there was no sign of any infectious process, abscess, or emergent surgical findings. Notes improvement of pain after medications and fluids here. Overall with the lab work there was nothing of remark. He refused to give urine or swab for COVID flu. He states that he just recently had a colonoscopy where they stated that he had some inflammation along his colon, cannot find record of this however we will just go ahead and treat with some steroids and have him closely follow-up [facility]. He agrees with this plan and we discussed work return precautions to which she verbalized understanding. Lab Data 12/03/24 15:14 12/03/24 15:14 Labs/Radiology: Radiology Impressions Abdomen/Pelvis CT 12/03/24 18:01 IMPRESSION: 1. No bowel obstruction or inflammatory process associated with the bowel. 2. No free air or significant free fluid in the abdomen or pelvis. 3. No evidence of appendicitis. Laboratory Results WBC 12.45 10^3/uL (3.29-11.43) H 12/03/24 15:14 RBC 5.68 10^6/uL (3.85-5.65) H 12/03/24 15:14 Hgb 18.20 g/dL (11.27-16.99) H 12/03/24 15:14 Hct 55.1 % (37-53) H 12/03/24 15:14 MCV 97.0 fl (82-101) 12/03/24 15:14 MCH 32.0 pg (27-33) 12/03/24 15:14 MCHC 33.0 g/dL (30-55) 12/03/24 15:14 RDW 12.5 % (12.1-15.1) 12/03/24 15:14 Plt Count 187 10^3/cmm (157-399) 12/03/24 15:14 MPV 10.1 fL (7.4-10.4) 12/03/24 15:14 Neut % (Auto) 81.1 % 12/03/24 15:14 Lymph % (Auto) 10.4 % 12/03/24 15:14 [place] % (Auto) 7.7 % 12/03/24 15:14 Eos % (Auto) 0.1 % 12/03/24 15:14 Baso % (Auto) 0.3 % 12/03/24 15:14 Neut # (Auto) 10.10 10^3/uL (1.8-7.7) H 12/03/24 15:14 Lymph # (Auto) 1.3 10^3/uL (0.8-4.8) 12/03/24 15:14 [place] # (Auto) 1.0 10^3/uL (0.2-0.9) H 12/03/24 15:14 Eos # (Auto) 0.0 10^3/uL (0.0-0.8) 12/03/24 15:14 Baso # (Auto) 0.0 10^3/uL (0.0-0.1) 12/03/24 15:14 Nucleated RBC % (auto) 0 % 12/03/24 15:14 Nucleated RBCs # 0.0 /100WBC 12/03/24 15:14 Sodium 140 mmol/L (136-145) 12/03/24 15:14 Potassium 4.0 mmol/L (3.5-5.1) 12/03/24 15:14 Chloride 97 mmol/L (98-107) L 12/03/24 15:14 Carbon Dioxide 29 mmol/L (22-29) 12/03/24 15:14 Anion Gap 18.0 (5-19) 12/03/24 15:14 BUN 24 mg/dL (8-23) H 12/03/24 15:14 Creatinine 0.9 mg/dL (0.7-1.2) 12/03/24 15:14 GFR Calculation 85.5 mL/min (90-130) L 12/03/24 15:14 Glucose 112 mg/dL (65-115) 12/03/24 15:14 Calculated Osmolality 295 mOsm/kg (285-295) 12/03/24 15:14 Calcium 10.1 mg/dL (8.5-10.5) 12/03/24 15:14 Total Bilirubin 1.1 mg/dL (0.15-1.2) 12/03/24 15:14 AST 18 U/L (0-40) 12/03/24 15:14 ALT 32 U/L (0-41) 12/03/24 15:14 Alkaline Phosphatase 100 U/L (40-130) 12/03/24 15:14 Total Protein 7.8 g/dL (6.6-8.7) 12/03/24 15:14 Albumin 4.8 g/dL (3.5-5.2) 12/03/24 15:14 Globulin 3.0 g/dL (1.3-4.6) 12/03/24 15:14 Lipase 20 U/L (13-60) 12/03/24 15:14 All radiology interpretation(s) finalized by discharge Discharge Plan Discharge Patient Disposition: Home Clinical Impression: Abdominal pain Condition: Stable Prescriptions: New prednisone 20 mg tablet 60 mg PO ONCE 5 Days Qty: 15 0RF No Action ondansetron HCl 4 mg tablet 4 mg PO Q6H PRN (Reason: nausea and vomiting) Qty: 20 0RF promethazine 25 mg tablet 25 mg PO Q6H PRN (Reason: nausea and vomiting) Qty: 20 0RF Cipro 500 mg tablet 500 mg PO Q12H Qty: 20 0RF calcium carbonate 500 mg calcium (1,250 mg) Tablet,Chewable 500 - 1,000 mg PO PRN PRN (Reason: Heartburn) sodium phosphates Solution See Rx Instructions .ROUTE .COMPLEX PRN (Reason: Constipation) Rx Instructions: as directed as needed docusate sodium [Stool Softener] 100 mg Tablet 200 mg PO QPM PRN (Reason: Constipation) sennosides-docusate sodium [Senna-S] 8.6-50 mg tablet 1 tab-cap PO BID PRN (Reason: constipation) Qty: 30 0RF dicyclomine 20 mg tablet 20 mg PO QID PRN (Reason: abdominal pain) Qty: 30 0RF metoclopramide HCl [Reglan] 10 mg tablet 10 mg PO Q6H PRN (Reason: nausea and vomiting) Qty: 14 0RF hydrocodone-acetaminophen 5-325 mg tablet 1 tab PO Q6H PRN (Reason: pain) Qty: 14 0RF ondansetron 4 mg tablet,disintegrating 4 mg PO Q6H PRN (Reason: nausea and vomiting) Qty: 14 0RF Discharge Orders: Discharge ED (Routine); Ordered 12/03/24 Ordered By: Danny Ray Referrals: Pelon Chowdhury MD [Primary Care Provider] - Patient Instructions: Abdominal Pain (ED), Pain Management Activity Restrictions/Additional Instructions: Steroids as prescribed. Ibuprofen Tylenol for pain. Make sure that you are drinking plenty fluids. If you develop any fever, worsening pain, recurrence of blood in your stool, or any other concerns please return to the ED as we discussed. Print Language: Wolof Coding Level of Care Code ED Instrument Repair Specialist for Kuldip Bar
[2024-12-03 18:30] VITALS: PULSE 91; O2SAT 94
[2024-12-03] MEDS: iohexol 350 mg/mL 500 mL Btl (per mL) IV (18:43)
[2024-12-03] MEDS: sodium chloride 0.9% 1,000 ML 999 ML IV (19:13)
[2024-12-03] MEDS: morphine 4 mg/mL SDV 1 mL IVP (19:13)
[2024-12-03] MEDS: ondansetron 2 mg/ML SDV 2 mL 8 MG IVP (19:13)
[2024-12-03] MEDS: dexamethasone 10 mg/mL INJ IVP (20:22)
[2024-12-03 20:30] VITALS: BP 130/55; PULSE 63; RESP 20; O2SAT 95
== END 2024-12-03 20:31 | disposition home or self-care (01) ==
PROVIDERS: Emergency Medicine; Emergency Provider Physician Assistant
DX: R10.9 Unspecified abdominal pain (principal); Z87.891 Personal history of nicotine dependence
CPT/HCPCS: 36415; 74177; 80053; 83690; 85025; 96374; 96375; 99285; J1100; J2270; J2405; J7030

== ENCOUNTER → 2025-01-19 14:19 | Outpatient (BNVA) | payer OTHER, SELFPAY | PROVIDERS: Visit Provider Nurse Practitioner | DX: M16.12 Unilateral primary osteoarthritis, left hip (principal) | CPT/HCPCS: 73502; 99204 ==

== ENCOUNTER → 2025-04-03 11:54 | Outpatient (BNVA) | payer OTHER, SELFPAY | PROVIDERS: Visit Provider Specialist | DX: M16.12 Unilateral primary osteoarthritis, left hip (principal) | CPT/HCPCS: 20610; 77002; J1100; J2795; J3301; J9999 ==

== ENCOUNTER → 2025-05-08 08:13 | Outpatient (BNVA) | payer OTHER, SELFPAY | PROVIDERS: PCP Family Medicine; Visit Provider Nurse Practitioner | DX: M16.12 Unilateral primary osteoarthritis, left hip (principal) | CPT/HCPCS: 99214 ==

== ENCOUNTER → 2025-06-08 09:53 | Outpatient (BNVA) | payer OTHER, SELFPAY | PROVIDERS: PCP Family Medicine; Visit Provider Nurse Practitioner | DX: M16.12 Unilateral primary osteoarthritis, left hip (principal); Z96.642 Presence of left artificial hip joint | CPT/HCPCS: 36415; 73502; 80053; 81001; 85025; 99214 ==

== ENCOUNTER 2025-06-17 16:59 | Outpatient (CLI) | payer OTHER, SELFPAY ==
--- NOTE | 2025-06-17 17:15 | CT_ITS ---
WS: [id number] CT LEFT hip for SARAH procedure HISTORY: M16.12 - Unilateral primary osteoarthritis, left hip COMPARISON: 06/08/2025 TECHNIQUE: Protocol for SARAH total hip replacement has been obtained. This includes axial imaging from the hip joint through the knee joint. DLP: 974.82 mGy FINDINGS: LEFT hip: Severe narrowing of the LEFT hip joint. Bone upon bone with osteophytic ridging around the acetabulum and femoral head. Mild narrowing of the RIGHT hip joint. No fracture. LEFT knee: Normal alignment. Very minimal degenerative changes and joint space narrowing. Partial atrophy semimembranosus muscle. CT/CT hip LT [facility] [id number] IMPRESSION: CT imaging provided for [facility] robotic total knee replacement.
== END 2025-06-17 17:00 | disposition home or self-care (01) ==
LOC: RAD 17:00
PROVIDERS: PCP Family Medicine; Visit Provider Specialist
DX: M16.12 Unilateral primary osteoarthritis, left hip (principal); Z01.818 Encounter for other preprocedural examination
CPT/HCPCS: 73700

== ENCOUNTER → 2025-06-23 08:17 | Outpatient (BNVA) | payer OTHER, SELFPAY | PROVIDERS: PCP Family Medicine; Visit Provider Family Medicine | DX: Z01.818 Encounter for other preprocedural examination (principal) | CPT/HCPCS: 81000 ==

== ENCOUNTER → 2025-07-24 08:23 | Outpatient (BNVA) | payer OTHER, SELFPAY | PROVIDERS: PCP Family Medicine; Visit Provider Nurse Practitioner | DX: Z98.890 Other specified postprocedural states (principal); Z96.642 Presence of left artificial hip joint | CPT/HCPCS: 73502; 99024 ==

== ENCOUNTER → 2025-08-21 08:30 | Outpatient (BNVA) | payer OTHER, SELFPAY | PROVIDERS: PCP Family Medicine; Visit Provider Nurse Practitioner | DX: Z98.890 Other specified postprocedural states (principal); Z96.642 Presence of left artificial hip joint | CPT/HCPCS: 99024 ==